=== PATIENT | female | born 1955 | race Caucasian/White ===

== ENCOUNTER 2016-11-09 16:53 | Inpatient (IN) | payer MEDICARE, OTHER ==
[2016-11-09 19:20] LABS: Hematocrit 35 % (35-47); Hemoglobin 11.9 g/dl (12.0-16.0); Mean Corpuscular HGB Conc 34 g/dl (31-36); Mean Corpuscular Hemoglobin 35 pg (27-31); Mean Corpuscular Volume 105 fL (80-97); Mean Platelet Volume 9 um3 (7.4-10.4); Red Blood Count 3.37 10^6/ul (4.0-5.4); Red Cell Distribution Width 15 % (10.5-15); White Blood Count 7.1 10^3/ul (3.5-10.8)
[2016-11-09 19:35] LABS: ALT 131 U/L (7-52); AST 146 U/L (13-39); Albumin 1.8 g/dL (3.2-5.2); Alkaline Phosphatase 172 U/L (34-104); Anion Gap 3 mmol/L (2-11); BUN/Creatinine Ratio 20.7 (8-20); Blood Urea Nitrogen 17 mg/dL (6-24); C Reactive Protein 15.53 mg/L (< 5.00); CO2 Carbon Dioxide 22 mmol/L (22-32); Chloride 108 mmol/L (101-111); Comments Flag Yes; EGFR African American 91.5 (>60); EGFR Non-African American 71.1 (>60); Globulin 6.3 g/dL (2-4); Glucose 166 mg/dL (70-100); Magnesium 1.7 mg/dL (1.9-2.7); Potassium 3.9 mmol/L (3.5-5.0); Sodium 133 mmol/L (133-145); Total Protein 8.1 g/dL (6.4-8.9)
[2016-11-09 20:12] LABS: Lipase 75 U/L (11.0-82.0)
[2016-11-09] MEDS ORDERED: Ondansetron INJ* 2 MG/ML VIAL IV PRN (21:28)
[2016-11-09] MEDS ORDERED: Phytonadione Oral Solution* 5 MG/25 ML UDC PO ONE (21:28)
[2016-11-09] MEDS ORDERED: Magnesium Sulfate 2 GM IV* 2 GM/50 ML BAG IVPB ONE (21:31)
[2016-11-09 22:04] LABS: Alcohol < 10 mg/dL (<10)
[2016-11-09] MEDS: Furosemide IV* 10 MG/ML VIAL (40 MG) IV SCH (23:21)
[2016-11-10 00:55] LABS: Urine Bilirubin Negative (Negative); Urine Glucose Negative (Negative); Urine Nitrite Negative (Negative)
--- NOTE | 2016-11-10 01:24 | HP ---
CC: Dr. Cordova * HISTORY AND PHYSICAL: DATE OF ADMISSION: 11/09/16 PRIMARY CARE PROVIDER: Dr. Cordova. ATTENDING PHYSICIAN WHILE IN THE HOSPITAL: Dr. Tripp Sheets * (report dictated by Poli Fan NP). CHIEF COMPLAINT: 1. Abdominal pain. 2. Weight gain. HISTORY OF PRESENT ILLNESS: Ms. Vidal is a 61-year-old female patient who has a history of long-standing alcoholism. She said she quit drinking alcohol about 6 weeks ago. Over the last 6 months, she has had progressive worsening abdominal swelling and pain. The pain has gotten unbearable last 2 to 3 days. She has been following closely in the GI setting, recently placed on Lasix and Aldactone per her and recently the Lasix was doubled; however, despite this, she continued to gain weight, she was continuing having abdominal discomfort, and continued to have the pain. Fortunately, she has not had any fevers or chills. She has not had any nausea or vomiting, though she says that the fluids got to the the point where her pain is unbearable at times and at times it affects particularly her exercise capacity. She says she is barely able to ambulate without becoming more short of breath and becoming tired. She denied having any chest pain. No cough. No fevers or chills. She says despite having the Lasix increased, she was unable to have any relief of this. She says she feels like she is with triplets and she says that the distention of the abdomen and the fluid had just been getting worse and worse, so she presented to the ER today with hopes for pain control and pain relief and work up of this ascites. Again, she had been following closely with the GI Clinic. She does have a history of chronic alcoholism, alcoholic cirrhosis of the liver, in addition, she also has a history of she says hepatitis B, but it looks like actually it is hepatitis C. The patient came in, was evaluated in the ER, and because of the ascites, the hospitalist service was asked to evaluate for admission. PAST MEDICAL HISTORY: Significant for: 1. Anxiety. 2. Chronic pain. 3. Alcoholic liver cirrhosis with ascites. 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 5. Hypertension. 6. PVD. 7. History of hepatitis C. PAST SURGICAL HISTORY: 1. She has had multiple surgeries to bilateral lower feet. 2. She has had an oversew of a peptic ulcer. MEDICATIONS: Unfortunately, she does not know her medications but only by name , does not know the dosages. She says she takes: 1. Metoprolol 1 tablet daily. 2. Potassium 60 mEq p.o. daily. 3. Lasix, she thinks she is on 40 mg daily. 4. Spironolactone 1 tablet p.o. daily. 5. Multivitamin 1 tablet daily. 6. Xanax 1 tablet at bedtime. 7. Zoloft 1 tablet daily. 8. Oxycodone 1 tablet p.o. b.i.d. Again, she does not know the milligrams, she does not have a list with her, we are going to touch base with her PCP tomorrow or possibly her pharmacy to get a more accurate list. ALLERGIES TO MEDICATIONS: Include AMBIEN and IBUPROFEN. FAMILY HISTORY: Her mother was an alcoholic. Her father's history is really unknown. SOCIAL HISTORY: She does not drink. She says the last drink she had was about 6 weeks ago according to the patient. She does not smoke. She denies recreational drug abuse. She has 2 children. Surrogate decision maker is her friend, Michaelle. REVIEW OF SYSTEMS: There is no documented fever. She does admit to having about a 50-pound weight gain in the last 6 months. She denies having any double vision. There is no ear discharge. She denied having any rhinorrhea. There is no sore throat. No thyroid enlargement. She denied having any chest pain. She denies having any orthopnea. There is no nocturnal dyspnea. There is abdominal pain from my HPI. She denies having any nausea or vomiting. No dysuria, no frequency. No loss of consciousness. No pruritus and no skin ulcerations. Review of 14 systems completed, all others were negative. PHYSICAL EXAMINATION GENERAL: At this time, Ms. Vidal is a 61-year-old female patient, she is chronically ill appearing. She is sitting in the ER stretcher. She does not appear to be in any acute distress. VITAL SIGNS: Reveal blood pressure 130/57, pulse 83, respirations 18, O2 sat was 97%, temperature 98.1. HEENT: Head: Atraumatic. Eyes: Sclerae appear to be icteric. EOMs are intact. Pupils react to light. NECK: Supple. Throat: Oral mucosa appears to be moist. No oropharyngeal erythema. LUNGS: Clear to auscultation bilaterally. No wheezes, rales, or rhonchi. HEART: Sounds S1, S2. Regular rate and rhythm. No murmurs, rubs, or gallops. ABDOMEN: It was distended, it was nontender on palpation. Bowel sounds were present. On percussion, she had dullness in the lower quadrants. She does appear to have a large amount of ascites. EXTREMITIES: She did have +3 pitting edema bilaterally to the pedal area. She had 5/5 strength. NEUROLOGICAL: The patient is awake, she is alert, she is oriented x3. No gross focal deficits. SKIN: Grossly intact. DIAGNOSTIC STUDIES/LAB DATA: Revealed a WBC of 7.1, RBC of 3.37, hemoglobin 11.9, hematocrit 35, platelet count of 65 which she has been running there. Her INR was 1.89. Today, the sodium was 133, potassium 3.9, chloride of 108, bicarb 22, BUN 17, creatinine 0.82, glucose of 166, lactate 2.3, calcium 8, mag 1.7. Total bili 4.7, AST 146, ALT of 131, alk phos 172. Ammonia was 62. The albumin was 1.8, lipase 75. I am adding on an alcohol level. She had an abdominal ultrasound done today, which showed the impressions of ascites. Findings: There is a moderate amount of ascites. Old medical records were reviewed. ASSESSMENT AND PLAN: Ms. Vidal is a 61-year-old female patient coming into the ER today with complaints of increasing abdominal distention and discomfort and associated increasing weakness and shortness of breath. Hospitalist service was asked to evaluate for admission due to ascites. She will be admitted under observation status for: 1. Ascites. Again, this appears to be a long chronic issue, which is now coming to the point where the patient will require a paracentesis. There was concern because of the increasing pain that there was possible spontaneous bacterial peritonitis; however, she has no CRP, there is no white count, no fever. I am inclined to hold on antibiotics and try to get a tap tomorrow for diagnostic and therapeutic reasoning and then assess the tap findings. If needed, we will start an antibiotic, but there is no fever, no white count, and again no elevation in CRP, I think we can hold off and monitor. Should she spike a white count obviously, we would put her on antibiotics. 2. Alcoholic cirrhosis with ascites. Again, she is following closely with the GI in the GI clinic. She has a followup with, according to the patient, Dr. Chavez this . At this point, I will continue the diuretics, try to get the paracentesis, and send off the tap for diagnostic purposes. She does not appear to be encephalopathic, so I do not think she needs lactulose for the ammonia that is for the time being, but I will continue the spironolactone, changing the Lasix to IV, and we will continue to follow her closely. Her MELD score is 22 and so she should again be followed closely with GI where she already has setup. 3. Chronic pain. Continue meds as prescribed. 4. Anxiety. We will try to get an accurate med list and see what the dose for Xanax is and also the dose of her Zoloft; she takes this for depression. 5. Hypertension. Again, I do not know the accurate dose of her Lopressor. We will try to get this tomorrow but I am going to continue the spironolactone and Lasix, which will help. 6. History of peptic ulcer disease. She is not on a PPI. She is following with GI. She can follow this. 7. History of hepatitis C. GI has been following her for this. Not an active issue currently. 8. DVT prophylaxis. Because of the elevated INR and the coagulopathy, which is being driven by the cirrhosis and liver dysfunction. I will give her vitamin K and place her on SCDs only and hold off on heparin. 9. Fluid, electrolytes, and nutrition. She can have a low-protein diet, then she is n.p.o. after midnight. 10. Code status. Full code. TIME SPENT: On the admission was 60 minutes; greater than half the time spent face- to-face with the patient obtaining the history and physical; other half the time spent going over the plan of the care with the patient and implementing plan of care. I did discuss the plan of care with my attending physician, Dr. Sheets; he is in agreement. POLI FAN, RIVAS [id number]/[facility] #: [id number] [place]
[2016-11-10 05:53] LABS: Comments Flag Yes; Hematocrit 32 % (35-47); Hemoglobin 10.8 g/dl (12.0-16.0); Mean Corpuscular HGB Conc 34 g/dl (31-36); Mean Corpuscular Hemoglobin 35 pg (27-31); Mean Corpuscular Volume 104 fL (80-97); Mean Platelet Volume 9 um3 (7.4-10.4); Red Cell Distribution Width 14 % (10.5-15); White Blood Count 6.7 10^3/ul (3.5-10.8)
[2016-11-10 07:45] LABS: Albumin 1.7 g/dL (3.2-5.2); BUN/Creatinine Ratio 21.3 (8-20); Calcium 7.9 mg/dL (8.6-10.3); EGFR African American 94.1 (>60); EGFR Non-African American 73.2 (>60); Globulin 5.8 g/dL (2-4); Potassium 3.4 mmol/L (3.5-5.0); Total Bilirubin 4.4 mg/dL (0.2-1.0); Total Protein 7.5 g/dL (6.4-8.9)
[2016-11-10] MEDS: Spironolactone TAB* 25 MG PO SCH (08:51)
[2016-11-10] MEDS: Furosemide IV* 10 MG/ML VIAL (40 MG) IV SCH (08:51)
[2016-11-10] MEDS: Lactulose* 15 ML UDC PO SCH ×3 (09:05→21:20)
[2016-11-10 14:49] LABS: Body Fluid WBC 55 /mcL
[2016-11-10 14:56] LABS: Body Fluid Appearance Clear; Body Fluid Total Cells Counted 100
[2016-11-10] MEDS: oxyCODONE TAB* 5 MG TAB PO PRN ×2 (15:15→23:30)
[2016-11-10] MEDS ORDERED: Potassium Chlor TAB* 20 MEQ TAB.ER PO ONE (15:21)
--- NOTE | 2016-11-10 15:26 | PN ---
Subjective Date of Service: 11/10/16 Interval History: pt was seen prior to paraccentesis. she never had paracentesis before. c/o increase in abd girth to the point of "having triplets" in the past 6 weeks. Objective Active Medications: Furosemide (Lasix Iv*) 40 mg IV DAILY [facility] Last Admin: 11/10/16 08:51 Dose: 40 mg Albumin Human 100 ml/ IV (Solution) 100 mls @ 0 mls/hr IV .(ENTER) [facility] PRN Reason: As Directed Lactulose (Lactulose*) 15 ml PO TID [facility] Last Admin: 11/10/16 14:50 Dose: 15 ml Ondansetron HCl (Zofran Inj*) 4 mg IV Q6H PRN PRN Reason: NAUSEA Oxycodone HCl (Roxycodone Tab*) 5 mg PO Q8H PRN PRN Reason: PAIN Last Admin: 11/10/16 15:15 Dose: 5 mg Spironolactone (Aldactone Tab*) 50 mg PO DAILY [facility] Last Admin: 11/10/16 08:51 Dose: 50 mg Vital Signs 11/09/16 11/09/16 11/10/16 21:30 22:50 03:17 Temperature 98.0 F 98.2 F Pulse Rate 82 75 85 Respiratory 18 20 Rate Blood Pressure 135/69 144/71 147/78 (mmHg) O2 Sat by Pulse 98 100 97 Oximetry 11/10/16 11/10/16 11/10/16 07:43 08:00 11:30 Temperature 97.5 F 98.1 F Pulse Rate 79 78 Respiratory 16 16 16 Rate Blood Pressure 138/61 121/64 (mmHg) O2 Sat by Pulse 99 100 Oximetry 11/10/16 11/10/16 12:46 15:15 Temperature 98.0 F Pulse Rate 96 Respiratory 23 14 Rate Blood Pressure 145/86 (mmHg) O2 Sat by Pulse 99 Oximetry Appearance: 61 yo f in nAD, aAOx3 Eyes: PERRLA, - - scela icteric Ears/Nose/Mouth/Throat: NL Teeth, Lips, Gums, Mucous Membranes Moist Neck: NL Appearance and Movements; NL JVP, Trachea Midline Respiratory: Symmetrical Chest Expansion and Respiratory Effort, Clear to Auscultation Cardiovascular: NL Sounds; No Murmurs; No JVD, RRR Abdominal: - - large , dense ascites, small reducible umbilical hernia, abd NT, BS+ Lymphatic: No Cervical Adenopathy Extremities: No Edema Skin: No Nodules or Sclerosis, - - +1 pitting pedal edema b/l Neurological: Alert and Oriented x 3, NL Muscle Strength and Tone Result Diagrams: 11/10/16 05:41 11/10/16 05:41 Microbiology and Other Data: Microbiology 11/10/16 13:37 Gram Stain - Final Body Fluid - Peritoneal Assess/Plan/Problems-Billing Assessment: 61 yo f with h/o Hep C, Alcoholism presents with large ascites - Patient Problems (1) Ascites due to alcoholic cirrhosis Comment: Pt just came back from paracentesis of 8000 ml total will infuse albumin Cont Aldactone and Lasix (2) Depression Comment: stable, cont sertraline (3) LFT elevation Comment: due to ETOH liver disease improved from 09/2016 (4) Hypokalemia Comment: replacing PO (5) Hypomagnesemia Comment: replacing PO (6) Thrombocytopenia Comment: due to liver cirrhosis (7) DVT prophylaxis Comment: no anticoagulants due to thrombocytopenia Status and Disposition: Inpatient for large volume paracentesis
[2016-11-10] MEDS ORDERED: Albumin Human 25%* 100 ML in PREMIX* 0 ML IV SCH (16:00)
[2016-11-10] MEDS: Magnesium Oxide TAB* 400 MG PO SCH (17:28)
--- NOTE | 2016-11-10 21:23 | ED ---
Uma Laura Edward, scribed for Mayo Dubon MD on 11/09/16 at 1825 . Abdominal Pain/Female - HPI Summary HPI Summary: 61 y/o female presents to ED c/o gradual onset, diffuse, constant ABD pain starting 6 weeks ago. The pain is aggravated by bending over. The pain is excruciating, rated The pt's ABD is very distended. Pt has been falling and d/t her abd distention she is unable to get up. Pt has fallen 3x in past 2d. Associated sx: unsteadiness, fatigue. PMHx cirrhosis of the liver, club feet. - History of Current Complaint Chief Complaint: EDAbdPain Stated Complaint: ABD PAIN AND BLOATED Hx Obtained From: Patient Onset/Duration: Gradual Onset, Lasting Weeks - 6 weeks, Still Present Timing: Constant Severity Currently: Severe Pain Intensity: 9 Pain Scale Used: 0-10 Numeric Location: Diffuse Aggravating Factor(s): Other: - Bending over Associated Signs and Symptoms: Positive: Other: - ABD distension, unsteadiness, fatigue Allergies/Adverse Reactions: Allergies Allergy/AdvReac Type Severity Reaction Status Date / Time Ibuprofen [From Advil] Allergy Intermediate gi bleed Verified 11/09/16 16:56 Zolpidem [From Ambien] Allergy Intermediate sleep Verified 11/09/16 16:56 walking PMH/Surg Hx/FS Hx/Imm Hx Previously Healthy: No Cardiovascular History: Reports: Hx Hypertension Psychiatric History: Reports: Hx Substance Abuse - Alcohol - Cancer History Hx Chemotherapy: No Hx Radiation Therapy: No - Surgical History Surgery Procedure, Year, and Place: Surgery for club feet as a child. Endoscopy (2008) Infectious Disease History: Reports: Hx Hepatitis - C Denies: Traveled Outside the [place] in Last 30 Days - Family History Known Family History: Positive: Cardiac Disease, Hypertension, Diabetes - Social History Occupation: Retired Lives: With Family Alcohol Use: Occasionally Hx Substance Use: No Substance Use Type: Reports: None Hx Tobacco Use: Yes Smoking Status (MU): Former Smoker Review of Systems Positive: Fatigue Eyes: Negative ENT: Negative Cardiovascular: Negative Respiratory: Negative Positive: Abdominal Pain, Other - ABD distension Genitourinary: Negative Musculoskeletal: Negative Skin: Negative Neurological: Other - Unsteadiness Psychological: Normal All Other Systems Reviewed And Are Negative: Yes Physical Exam Triage Information Reviewed: Yes Vital Signs On Initial Exam: Initial Vitals Temp Pulse Resp BP Pulse Ox 98.6 F 86 20 152/82 98 11/09/16 16:56 11/09/16 16:56 11/09/16 16:56 11/09/16 16:56 11/09/16 16:56 Vital Signs Reviewed: Yes Appearance: Positive: Well-Appearing, No Pain Distress Skin: Positive: Warm, Skin Color Reflects Adequate Perfusion, Dry Head/Face: Positive: Normal Head/Face Inspection Eyes: Positive: Normal ENT: Positive: Normal ENT inspection Neck: Positive: Supple, Nontender Respiratory/Lung Sounds: Positive: Clear to Auscultation, Breath Sounds Present Cardiovascular: Positive: RRR Abdomen Description: Positive: Nontender, Soft, Distended Bowel Sounds: Positive: Present Musculoskeletal: Positive: Edema Left - Peripheral edema, Edema Right - Peripheral edema Neurological: Positive: Normal Psychiatric: Positive: Normal, Affect/Mood Appropriate Diagnostics - Vital Signs Vital Signs Temp Pulse Resp BP Pulse Ox 11/09/16 16:56 98.6 F 86 20 152/82 98 - Laboratory Lab Results: Lab Results 11/09/16 11/09/16 11/09/16 Range/Units 19:00 19:00 19:00 WBC 7.1 (3.5-10.8) 10^3/ul RBC 3.37 L (4.0-5.4) 10^6/ul Hgb 11.9 L (12.0-16.0) g/dl Hct 35 (35-47) % MCV 105 H (80-97) fL MCH 35 H (27-31) pg MCHC 34 (31-36) g/dl RDW 15 (10.5-15) % Plt Count 65 L (150-450) 10^3/ul MPV 9 (7.4-10.4) um3 Neut % (Auto) 74.3 (38-83) % Lymph % (Auto) 13.1 L (25-47) % Sherman % (Auto) 10.5 H (1-9) % Eos % (Auto) 1.6 (0-6) % Baso % (Auto) 0.5 (0-2) % Absolute Neuts (auto) 5.3 (1.5-7.7) 10^3/ul Absolute Lymphs (auto) 0.9 L (1.0-4.8) 10^3/ul Absolute Monos (auto) 0.7 (0-0.8) 10^3/ul Absolute Eos (auto) 0.1 (0-0.6) 10^3/ul Absolute Basos (auto) 0 (0-0.2) 10^3/ul Absolute Nucleated RBC 0.01 10^3/ul Nucleated RBC % 0.2 INR (Anticoag Therapy) (0.89-1.11) Sodium 133 (133-145) mmol/L Potassium 3.9 (3.5-5.0) mmol/L Chloride 108 (101-111) mmol/L Carbon Dioxide 22 (22-32) mmol/L Anion Gap 3 (2-11) mmol/L BUN 17 (6-24) mg/dL Creatinine 0.82 (0.51-0.95) mg/dL Est GFR ( Amer) 91.5 (>60) Est GFR (Non-Af Amer) 71.1 (>60) BUN/Creatinine Ratio 20.7 H (8-20) Glucose 166 H (70-100) mg/dL Lactic Acid (0.5-2.0) mmol/L Calcium 8.0 L (8.6-10.3) mg/dL Magnesium 1.7 L (1.9-2.7) mg/dL Total Bilirubin 4.70 H (0.2-1.0) mg/dL AST 146 H (13-39) U/L ALT 131 H (7-52) U/L Alkaline Phosphatase 172 H (34-104) U/L Ammonia 62 H (16-53) mol/L C-Reactive Protein 15.53 H (< 5.00) mg/L Total Protein 8.1 (6.4-8.9) g/dL Albumin 1.8 L (3.2-5.2) g/dL Globulin 6.3 H (2-4) g/dL Albumin/Globulin Ratio 0.3 L (1-3) Lipase 75 (11.0-82.0) U/L Serum Alcohol < 10 (<10) mg/dL 11/09/16 11/09/16 Range/Units 19:00 19:00 WBC (3.5-10.8) 10^3/ul RBC (4.0-5.4) 10^6/ul Hgb (12.0-16.0) g/dl Hct (35-47) % MCV (80-97) fL MCH (27-31) pg MCHC (31-36) g/dl RDW (10.5-15) % Plt Count (150-450) 10^3/ul MPV (7.4-10.4) um3 Neut % (Auto) (38-83) % Lymph % (Auto) (25-47) % Sherman % (Auto) (1-9) % Eos % (Auto) (0-6) % Baso % (Auto) (0-2) % Absolute Neuts (auto) (1.5-7.7) 10^3/ul Absolute Lymphs (auto) (1.0-4.8) 10^3/ul Absolute Monos (auto) (0-0.8) 10^3/ul Absolute Eos (auto) (0-0.6) 10^3/ul Absolute Basos (auto) (0-0.2) 10^3/ul Absolute Nucleated RBC 10^3/ul Nucleated RBC % INR (Anticoag Therapy) 1.89 H (0.89-1.11) Sodium (133-145) mmol/L Potassium (3.5-5.0) mmol/L Chloride (101-111) mmol/L Carbon Dioxide (22-32) mmol/L Anion Gap (2-11) mmol/L BUN (6-24) mg/dL Creatinine (0.51-0.95) mg/dL Est GFR ( Amer) (>60) Est GFR (Non-Af Amer) (>60) BUN/Creatinine Ratio (8-20) Glucose (70-100) mg/dL Lactic Acid 2.3 H* (0.5-2.0) mmol/L Calcium (8.6-10.3) mg/dL Magnesium (1.9-2.7) mg/dL Total Bilirubin (0.2-1.0) mg/dL AST (13-39) U/L ALT (7-52) U/L Alkaline Phosphatase (34-104) U/L Ammonia (16-53) mol/L C-Reactive Protein (< 5.00) mg/L Total Protein (6.4-8.9) g/dL Albumin (3.2-5.2) g/dL Globulin (2-4) g/dL Albumin/Globulin Ratio (1-3) Lipase (11.0-82.0) U/L Serum Alcohol (<10) mg/dL Result Diagrams: 11/10/16 05:41 11/10/16 05:41 Lab Statement: Any lab studies that have been ordered have been reviewed, and results considered in the medical decision making process. Abdominal Pain Fem Course/Dx - Course Course Of Treatment: Ms. Vidal has accumulated ascites for the first time and is C/O pain. She will need a diagnostic and likely therapeutic tap. - Diagnoses Provider Diagnoses: Ascites due to alcoholic cirrhosis - Provider Notifications Discussed Care Of Patient With: Tripp Sheets Time Discussed With Above Provider: 20:45 Instructed by Provider To: Admit As Inpatient Discharge - Discharge Plan Condition: Stable Disposition: ADMITTED TO [facility] The documentation as recorded by the Uma sharma Edward accurately reflects the service I personally performed and the decisions made by Jagdish farfan Richard L, MD.
[2016-11-10] MEDS ORDERED: oxyCODONE TAB* 5 MG TAB PO SCH (21:28)
[2016-11-10] MEDS ORDERED: Heparin VIAL(*) 5000 UNITS/ML VIAL (FIVE THOUSAND) SUBCUT SCH (22:00)
--- NOTE | 2016-11-11 00:35 | OP ---
CC: Dr. Ari Chavez; Dr. Ashley Cordova * DATE OF OPERATION: 11/10/16 - ROOM #415 DATE OF : 57 SURGEON: Tian Jeffries MD SLASHER RUNNER: None. ANESTHESIOLOGIST: None. PRE-OP DIAGNOSIS: Ascites. POST-OP DIAGNOSIS: Ascites. OPERATIVE PROCEDURE: Ultrasound guided Paracentesis. DESCRIPTION OF PROCEDURE: The patient was in the procedure room on the stretcher. Ultrasound was carried out of the abdomen and large amount of ascites fluid was identified. There were about 5 cm of fluid between the abdominal wall and the organs on the right side of the abdomen, so the right side was chosen and the area was prepped with antiseptic and draped in a sterile fashion. Local infiltrative anesthesia was administered, 1% plain lidocaine. Skinny vest finisher needle identified fluid as expected and the paracentesis catheter was then placed. Chantel thin fluid was forthcoming. Specimens were sent to the lab. Suction bottles were used to acquire the ascites fluid and a total of about 8500 mL of ascites was evacuated. She felt much better at the completion of the procedure. The catheter was removed and bandage was placed. She will be sent back up to the medical floor following the procedure. [id number]/[facility] #: [id number] [facility]
[2016-11-11 06:07] LABS: Hematocrit 34 % (35-47); Hemoglobin 11.4 g/dl (12.0-16.0); Mean Corpuscular HGB Conc 34 g/dl (31-36); Mean Corpuscular Hemoglobin 35 pg (27-31); Mean Corpuscular Volume 105 fL (80-97); Mean Platelet Volume 9 um3 (7.4-10.4); Red Blood Count 3.24 10^6/ul (4.0-5.4); Red Cell Distribution Width 14 % (10.5-15); White Blood Count 7.5 10^3/ul (3.5-10.8)
[2016-11-11 06:12] LABS: Comments Flag Yes
[2016-11-11 06:21] LABS: Albumin 1.8 g/dL (3.2-5.2); BUN/Creatinine Ratio 23.7 (8-20); Calcium 8.1 mg/dL (8.6-10.3); EGFR African American 99.8 (>60); EGFR Non-African American 77.6 (>60); Globulin 5.6 g/dL (2-4); Potassium 3.7 mmol/L (3.5-5.0); Total Protein 7.4 g/dL (6.4-8.9)
[2016-11-11] MEDS: Furosemide IV* 10 MG/ML VIAL (40 MG) IV SCH (07:58)
[2016-11-11] MEDS: oxyCODONE TAB* 5 MG TAB PO PRN (07:59)
[2016-11-11] MEDS: Spironolactone TAB* 25 MG PO SCH (08:00)
[2016-11-11] MEDS: Lactulose* 15 ML UDC PO SCH ×2 (08:01→13:40)
[2016-11-11] MEDS: Magnesium Oxide TAB* 400 MG PO SCH (08:01)
[2016-11-11] MEDS ORDERED: Sertraline* 100 MG TAB PO SCH (09:00)
[2016-11-11] MEDS ORDERED: Potassium Chlor TAB* 20 MEQ TAB.ER PO SCH (09:00)
[2016-11-11 11:57] VITALS: BP 131/68
[2016-11-11 14:12] LABS: Total Protein, BF 0.9 g/dL
--- NOTE | 2016-11-12 02:44 | DS ---
CC: Dr. Chavez; Dr. Cordova * DISCHARGE SUMMARY: DATE OF ADMISSION: 11/09/16 DATE OF DISCHARGE: 11/11/16 PRIMARY CARE PROVIDER: Dr. Cordova. HEALTHCARE ADMINISTRATION INTERN: Dr. Chavez. DISCHARGE DIAGNOSIS: Ascites with alcoholic liver cirrhosis, status post 8 L fluid obtained via paracentesis by Dr. Jeffries on 11/10/16. SECONDARY DIAGNOSES: 1. History of alcoholism. The patient stopped drinking 6 weeks ago. 2. History of hepatitis C. 3. History of anxiety. 4. History of chronic pain. 5. Hypertension. MEDICATIONS AT DISCHARGE: Include: 1. Lactulose 15 mL p.o. daily. 2. Metoprolol tartrate 25 mg daily. 3. Multivitamin 1 tablet daily. 4. Potassium chloride 20 mEq daily. 5. Sertraline 100 mg daily. 6. Trospium 20 mg daily. 7. Oxycodone 5 mg daily. 8. Furosemide 20 mg b.i.d. 9. Lidocaine ointment 5% p.r.n. 10. Mag-Ox 400 mg daily. 11. Aldactone 50 mg daily. PROCEDURES PERFORMED DURING THE HOSPITAL STAY: Included a paracentesis performed by Dr. Jeffries on 11/10/16. LABORATORY DATA AND STUDIES DURING THE HOSPITAL STAY: Included: On 11/11/16, sodium of 131, potassium 3.7, chloride 105, carbon dioxide 23, BUN 18, creatinine 0.76. Total bilirubin of 5.0, AST of 147, ALT of 126, alkaline phosphatase of 144. CBC included a white blood cell count of 7.5, hemoglobin is 11.4, hematocrit of 34, MCV of 105, and platelets of 67. Peritoneal fluid analysis showed clear fluid with white blood cells, 2445 red blood cells, 36% of neutrophils, 62 of lymphocytes, and 2 of monocytes. Other cells included benign mesothelial cells and macrophages. Ascites fluids: Total protein and albumin is still pending at the time of this dictation. At discharge, the patient is recommended to follow up with her primary care provider in 4 to 7 days and follow up with Dr. Chavez tomorrow as previously scheduled. The patient's ammonia level was noted to be 62 on 11/09/16. PHYSICAL EXAMINATION: At the time of discharge, blood pressure of 121/68, heart rate of 88 and regular, respiratory rate 16, oxygen saturation 99% on room air, temperature 97.9. General: The patient is a very pleasant 61-year- old female, who is in no acute distress. Alert, awake, and oriented x3. HEENT : Head atraumatic, normocephalic. Eyes: Pupils equal and reactive to light and accommodation. Oropharynx clear. Mucosa moist. Neck: Supple. No JVD. No bruits bilaterally. Cardiovascular: Regular rate and rhythm. No murmur. Respiratory: Clear to auscultation bilaterally. Abdomen: Soft, nontender. Mild ascites noted. No hepatomegaly palpated. Extremities: There is +1 pitting pedal edema bilaterally. Pulses +2 bilaterally. There is no clubbing or cyanosis. On evaluation of the skin, the patient has jaundice noted. She also has scleral icterus on eye evaluation. Psychiatric Evaluation: Very pleasant and cooperative with evaluation, oriented x3 with no evidence of anxiety or depression. At discharge, the patient was advised to ambulate with a rolling walker, which was provided to her. She was also set up with visiting nurse association. The patient was recommended strongly not to have any alcohol in the future. Please note that this is a short summary of the patient's hospitalization. Please refer to further medical records for details. TIME SPENT: Approximately 35 minutes was spent on the patient's discharge. [id number]/[facility] #: [id number] [facility]
== END 2016-11-11 14:10 | disposition home or self-care (01) | DRG 434 ==
LOC: ED 16:53 → MED 21:25 → OBSVTOIN 11-10 15:16
PROVIDERS: ADMIT Internal Medicine; ATTEND Internal Medicine
PROC: 0W9G3ZZ Drainage of Peritoneal Cavity, Percutaneous Approach (ICD-10-PCS; principal; 2016-11-10 13:00)
DX: K70.31 Alcoholic cirrhosis of liver with ascites (principal); D69.6 Thrombocytopenia, unspecified; I10 Essential (primary) hypertension; B19.20 Unspecified viral hepatitis C without hepatic coma; F41.9 Anxiety disorder, unspecified; G89.29 Other chronic pain; F10.20 Alcohol dependence, uncomplicated; Y90.9 Presence of alcohol in blood, level not specified; I73.9 Peripheral vascular disease, unspecified; F32.9 Major depressive disorder, single episode, unspecified; E83.42 Hypomagnesemia; E87.6 Hypokalemia; Z88.8 Allergy status to other drugs, medicaments and biological substances; Z91.81 History of falling; Z82.49 Family history of ischemic heart disease and other diseases of the circulatory system; Z83.3 Family history of diabetes mellitus; Z87.891 Personal history of nicotine dependence; Z81.1 Family history of alcohol abuse and dependence
CPT/HCPCS: 36415; 49082; 76705; 80053; 80320; 81003; 82042; 82140; 83605; 83690; 83735; 84157; 85025; 85610; 86140; 87040; 87205; 88112; 89051; A9270-GY; G0480; J1940; J3475; P9047

== ENCOUNTER → 2016-11-13 11:58 | Emergency (ER) | payer MEDICARE, OTHER ==
[~2016-11-13 11:58] MED LIST: ceFAZolin 1 GM ADVAN(*) 1 GM in NS 0.9% 50 ML* 50 ML IVPB ONE; oxyCODONE TAB* 5 MG TAB PO ONE
[2016-11-13 13:24] LABS: Hematocrit 35 % (35-47); Hemoglobin 11.7 g/dl (12.0-16.0); Mean Corpuscular HGB Conc 34 g/dl (31-36); Mean Corpuscular Hemoglobin 35 pg (27-31); Mean Platelet Volume 9 um3 (7.4-10.4); Red Blood Count 3.33 10^6/ul (4.0-5.4); Red Cell Distribution Width 14 % (10.5-15); White Blood Count 8.3 10^3/ul (3.5-10.8)
[2016-11-13 13:33] LABS: Comments Flag Yes; Mean Corpuscular Volume 105 fL (80-97)
[2016-11-13 13:36] LABS: Albumin 1.9 g/dL (3.2-5.2); BUN/Creatinine Ratio 22.7 (8-20); C Reactive Protein 26.6 mg/L (< 5.00); Calcium 8.2 mg/dL (8.6-10.3); EGFR African American 84.3 (>60); EGFR Non-African American 65.5 (>60); Potassium 4.1 mmol/L (3.5-5.0); Total Bilirubin 7.3 mg/dL (0.2-1.0); Total Protein 7.9 g/dL (6.4-8.9)
[2016-11-13 14:51] VITALS: BP 116/78
--- NOTE | 2016-11-13 20:18 | ED ---
Stevie Laura Nikita, scribed for Mayo Dubon MD on 11/13/16 at 1235 . Skin Complaint - HPI Summary HPI Summary: Pt is a 61 yo female presenting to the ED c/o pain on the surface of the right abd area since 0600 this morning. She rates the pain as a 9/10. Associated Sx include fever, per her PCP who withdrew fluid from the affected area this morning. She is allergic to Ambien and Advil. - History of Current Complaint Chief Complaint: EDAbdPain Time Seen by Provider: 11/13/16 12:16 Stated Complaint: INFECTION, CIRRHOSIS OF LIVER Hx Obtained From: Patient Onset/Duration: Started Hours Ago - 0600 this morning., Still Present Timing: Constant Onset Severity: Severe - 9/10 Current Severity: Severe - 9/10 Pain Intensity: 9 Pain Scale Used: 0-10 Numeric Skin Location: Abdomen - Right abdominal area. Character: Painful - 9/10 Aggravating Symptom(s): Nothing Alleviating Symptom(s): Nothing Associated Signs & Symptoms: Fever - Documented by PCP. - Additional Pertinent History Primary Care Physician: [id number] - Allergy/Home Medications Allergies/Adverse Reactions: Allergies Allergy/AdvReac Type Severity Reaction Status Date / Time Ibuprofen [From Advil] Allergy Intermediate gi bleed Verified 11/13/16 12:10 Zolpidem [From Ambien] Allergy Intermediate sleep Verified 11/13/16 12:10 walking Home Medications: Home Medications Lactulose (Encephalopathy) [Lactulose] 15 ml PO DAILY 11/13/16 [History Confirmed 11/13/16] Lidocaine 5% OINT* [Xylocaine 5% Oint*] 1 applic TOPICAL DAILY PRN 11/13/16 [ History Confirmed 11/13/16] Magnesium Oxide TAB* [MagOx 400 TAB*] 400 mg PO DAILY 11/13/16 [History Confirmed 11/13/16] Metoprolol Tartrate TAB* [Lopressor TAB*] 25 mg PO DAILY 11/13/16 [History Confirmed 11/13/16] Multivitamins/Minerals TAB* [Theragran/minerals TAB*] 1 tab PO DAILY 11/13/16 [ History Confirmed 11/13/16] Potassium Chlor TAB* [Klor Con ER TAB*] 20 meq PO DAILY 11/13/16 [History Confirmed 11/13/16] Sertraline* [Zoloft*] 100 mg PO DAILY 11/13/16 [History Confirmed 11/13/16] Spironolactone (NF) [Spironolactone 50 MG (NF)] 50 mg PO DAILY 11/13/16 [ History Confirmed 11/13/16] Trospium (NF) [Sanctura (NF)] 20 mg PO DAILY 11/13/16 [History Confirmed ] oxyCODONE TAB* [Roxycodone TAB 5 mg*] 5 mg PO BID PRN 11/13/16 [History Confirmed 11/13/16] PMH/Surg Hx/FS Hx/Imm Hx Previously Healthy: No Cardiovascular History: Reports: Hx Hypertension GI History: Reports: Hx Cirrhosis Comment Only: Other GI Disorders - peptic ulcer Musculoskeletal History: Reports: Other Musculoskeletal History - born club footed Sensory History: Reports: Hx Contacts or Glasses, Hx Hearing Aid Opthamlomology History: Reports: Hx Contacts or Glasses Psychiatric History: Reports: Hx Anxiety, Hx Substance Abuse - Alcohol - Cancer History Hx Chemotherapy: No Hx Radiation Therapy: No - Surgical History Surgery Procedure, Year, and Place: Surgery for club feet as a child. Endoscopy (2008) Infectious Disease History: Reports: Hx Hepatitis - C, History Other Infectious Disease - hep C Denies: Traveled Outside the [place] in Last 30 Days - Family History Known Family History: Positive: Cardiac Disease, Hypertension, Diabetes - Social History Alcohol Use: Occasionally Hx Substance Use: No Substance Use Type: Reports: None Hx Tobacco Use: Yes Smoking Status (MU): Former Smoker Review of Systems Positive: Fever - Documented by PCP this morning. Positive: Other - Pain on right abdominal area, 9/10 All Other Systems Reviewed And Are Negative: Yes Physical Exam Triage Information Reviewed: Yes Vital Signs On Initial Exam: Initial Vitals Temp Pulse Resp BP Pulse Ox 98.5 F 81 20 129/59 98 11/13/16 12:10 11/13/16 12:10 11/13/16 12:10 11/13/16 12:10 11/13/16 12:10 Vital Signs Reviewed: Yes Appearance: Positive: Well-Appearing, Pain Distress - 9/10 in right abdominal area. Skin: Positive: Tender - Erythematous area is tender to touch., Erythema @ - Erythematous area medial and inferior to the puncture site that's tender to touch Head/Face: Positive: Normal Head/Face Inspection Eyes: Positive: Normal ENT: Positive: Normal ENT inspection Neck: Positive: Supple, Nontender Respiratory/Lung Sounds: Positive: Clear to Auscultation, Breath Sounds Present Cardiovascular: Positive: RRR Abdomen Description: Positive: Nontender, Other: - No rebound. Bowel Sounds: Positive: Present Musculoskeletal: Positive: Normal Neurological: Positive: Normal Psychiatric: Positive: Normal, Affect/Mood Appropriate Diagnostics - Vital Signs Vital Signs Temp Pulse Resp BP Pulse Ox 11/13/16 12:10 98.5 F 81 20 129/59 98 - Laboratory Lab Results: Lab Results 11/13/16 11/13/16 Range/Units 13:00 13:00 WBC 8.3 (3.5-10.8) 10^3/ul RBC 3.33 L (4.0-5.4) 10^6/ul Hgb 11.7 L (12.0-16.0) g/dl Hct 35 (35-47) % MCV 105 H (80-97) fL MCH 35 H (27-31) pg MCHC 34 (31-36) g/dl RDW 14 (10.5-15) % Plt Count 65 L (150-450) 10^3/ul MPV 9 (7.4-10.4) um3 Neut % (Auto) 83.9 H (38-83) % Lymph % (Auto) 6.6 L (25-47) % [place] % (Auto) 7.4 (1-9) % Eos % (Auto) 0.7 (0-6) % Baso % (Auto) 1.4 (0-2) % Absolute Neuts (auto) 6.9 (1.5-7.7) 10^3/ul Absolute Lymphs (auto) 0.5 L (1.0-4.8) 10^3/ul Absolute Monos (auto) 0.6 (0-0.8) 10^3/ul Absolute Eos (auto) 0.1 (0-0.6) 10^3/ul Absolute Basos (auto) 0.1 (0-0.2) 10^3/ul Absolute Nucleated RBC 0.01 10^3/ul Nucleated RBC % 0.1 Sodium 127 L (133-145) mmol/L Potassium 4.1 (3.5-5.0) mmol/L Chloride 102 (101-111) mmol/L Carbon Dioxide 23 (22-32) mmol/L Anion Gap 2 (2-11) mmol/L BUN 20 (6-24) mg/dL Creatinine 0.88 (0.51-0.95) mg/dL Est GFR ( Amer) 84.3 (>60) Est GFR (Non-Af Amer) 65.5 (>60) BUN/Creatinine Ratio 22.7 H (8-20) Glucose 168 H (70-100) mg/dL Calcium 8.2 L (8.6-10.3) mg/dL Total Bilirubin 7.30 H D (0.2-1.0) mg/dL AST 221 H (13-39) U/L ALT 413 H (7-52) U/L Alkaline Phosphatase 155 H (34-104) U/L C-Reactive Protein 26.60 H (< 5.00) mg/L Total Protein 7.9 (6.4-8.9) g/dL Albumin 1.9 L (3.2-5.2) g/dL Globulin 6.0 H (2-4) g/dL Albumin/Globulin Ratio 0.3 L (1-3) Result Diagrams: 11/13/16 13:00 11/13/16 13:00 Lab Statement: Any lab studies that have been ordered have been reviewed, and results considered in the medical decision making process. Re-Evaluation - Re-Evaluation First Eval Re-Evaluation Time: 13:50 Comment: Discussed discharge plan. Second Eval Re-Evaluation Time: 14:01 Comment: Discussed Course/Dx - Course Course Of Treatment: Ms. Vidal was sent over from a routine F/U appt. with her PMD because of a fever after a recent paracentesis. She was noted to have an erythematous and tender area inferiorly and medially to the wound. She had no other abd tenderness or rebound and Shahid's sign was negative. Her transaminases were up from the other day and this will need to be followed closely. She got her first dose of antibiotics for skin infection here and a script was sent. - Diagnoses Provider Diagnoses: Cellulitis - Physician Notifications Discussed Care Of Patient With: Cecy Ryan Time Discussed With Above Provider: 13:58 Instructed by Provider To: Other - Dr. Ryan thought the increase in transaminase was likely due to diuresis. Discussed care of pt with Dr. Orona at 1423 who [address] to have Dr[address] Anderson follow up with the pt. Discharge - Discharge Plan Condition: Stable Disposition: HOME Prescriptions: Cephalexin CAP* [Keflex CAP*] 500 mg PO QID #40 cap Patient Education Materials: Cellulitis (ED) Referrals: Ashley Cordova MD [Primary Care Provider] - 11/16/16 Tai Anderson MD [Medical Doctor] - The documentation as recorded by the Stevie sharma Nikita accurately reflects the service I personally performed and the decisions made by , Mayo Dubon MD.
== END | disposition home or self-care (01) ==
LOC: ED 11:58
DX: L03.90 Cellulitis, unspecified (principal); R50.9 Fever, unspecified
CPT/HCPCS: 36415; 80053; 85025; 86140; 87040; 99283; J0690

== ENCOUNTER 2016-11-24 15:12 | Inpatient (IN) | payer MEDICARE ==
[2016-11-24] MEDS ORDERED: Thiamine IV* 100 MG, Folic Acid IV* 1 MG, Multiple Vitamin IV ADULT* 10 ML, Magnesium S... IV ONE ×5 (15:30)
[2016-11-24] MEDS ORDERED: NS 0.9% 1000 ML* 1,000 ML IV ONE (15:32)
[2016-11-24 15:45] LABS: Hematocrit 36 % (35-47); Hemoglobin 11.7 g/dl (12.0-16.0); Mean Corpuscular HGB Conc 33 g/dl (31-36); Mean Corpuscular Hemoglobin 35 pg (27-31); Mean Platelet Volume 8 um3 (7.4-10.4); Red Blood Count 3.33 10^6/ul (4.0-5.4); Red Cell Distribution Width 15 % (10.5-15); White Blood Count 11.9 10^3/ul (3.5-10.8)
[2016-11-24 15:48] LABS: Comments Flag Yes
[2016-11-24 15:49] LABS: Add Diff/Slide Review? Slide Review Added; Mean Corpuscular Volume 107 fL (80-97)
[2016-11-24 16:04] LABS: B Type Natriuretic Peptide 178 pg/mL
--- NOTE | 2016-11-24 16:05 | RAD ---
INDICATION: Altered mental status, pleural effusion. COMPARISON: There are no prior studies available for comparison. TECHNIQUE: A portable view of the chest was obtained. FINDINGS: Cardiac and mediastinal contours appear to be within normal limits. There is elevation of the right hemidiaphragm. The lungs are grossly clear. No pleural effusion is seen. IMPRESSION: 1. NO EVIDENCE FOR ACUTE FINDING. 2. ELEVATED RIGHT HEMIDIAPHRAGM.
[2016-11-24 16:06] LABS: ALT 260 U/L (7-52); Albumin 1.7 g/dL (3.2-5.2); Alkaline Phosphatase 179 U/L (34-104); Amylase 28 U/L (29-103); Blood Urea Nitrogen 53 mg/dL (6-24); C Reactive Protein 25.26 mg/L (< 5.00); Calcium 8.8 mg/dL (8.6-10.3); Chloride 106 mmol/L (101-111); Creatine Kinase 392 U/L (10-223); EGFR African American 22.3 (>60); EGFR Non-African American 17.3 (>60); Globulin 6.4 g/dL (2-4); Glucose 102 mg/dL (70-100); Lipase 53 U/L (11.0-82.0); Sodium 125 mmol/L (133-145); Total Protein 8.1 g/dL (6.4-8.9)
[2016-11-24 16:11] LABS: Anion Gap 5 mmol/L (2-11); CO2 Carbon Dioxide 14 mmol/L (22-32); Troponin I 0.05 ng/mL (<0.04)
--- NOTE | 2016-11-24 16:23 | RAD ---
Indication: Fall, hepatic encephalopathy. CT of the brain was performed without IV contrast. Ventricular structures are midline. No midline shift is noted. Central and cortical atrophy is noted. There is no evidence of intracranial mass or hemorrhage. No other high or low density lesions are identified. Mastoid air cells and paranasal sinuses are grossly unremarkable. IMPRESSION: NO INTRACRANIAL MASS OR HEMORRHAGE IS NOTED.
[2016-11-24] MEDS ORDERED: FOLIC ACID IV ONE (16:25)
[2016-11-24] MEDS ORDERED: THIAMINE IV ONE (16:25)
[2016-11-24] MEDS ORDERED: [UNRECOGNIZED DRUG - OTHER] IV ONE (16:25)
[2016-11-24] MEDS ORDERED: MULTIPLE VITAMIN IV ONE (16:25)
[2016-11-24] MEDS ORDERED: Magnesium Sulfate 2 GM IV* 2 GM/50 ML BAG IV ONE (17:00)
[2016-11-24 17:05] LABS: Magnesium 2.5 mg/dL (1.9-2.7)
[2016-11-24] MEDS ORDERED: Dextrose 50% Syringe 50 ML* 25 GM/50 ML SYRINGE IV PUSH ONE (17:09)
[2016-11-24] MEDS ORDERED: Insulin REGULAR(*) 1 UNITS UNIT IV PUSH ONE (17:09)
[2016-11-24] MEDS ORDERED: Sodium Bicarbonate 8.4% IV* 50 ML VIAL IV ONE (17:10)
[2016-11-24] MEDS ORDERED: Ondansetron INJ* 2 MG/ML VIAL IV PRN (17:32)
[2016-11-24] MEDS ORDERED: Sodium Bicarbonate 8.4%* 50 ML SYRINGE ONE (17:33)
[2016-11-24] MEDS ORDERED: Phytonadione Oral Solution* 5 MG/25 ML UDC PO ONE (17:42)
[2016-11-24] MEDS ORDERED: Lidocaine 1% INJ* 10 MG/ML 30 ML SDV ONE (18:03)
--- NOTE | 2016-11-24 18:44 | PN ---
Progress Note - Progress Note Date of Service: 11/24/16 Note: Procedure Note: Right Paracentesis - diagnostic to rule out SBP Time out performed Labs and vitals reviewed prior to procedure Site marked with patient's assistance Ultrasound guidance used to identify location Site prepped with chlorhexedine then anesthetized with 3 cc 2% lidocaine An 18 gauge needle was then inserted into the peritoneal space and 60 cc of clear yellow fluid was removed for culture and cell count Patient tolerated the procedure There were no complications during the procedure
--- NOTE | 2016-11-24 19:26 | ED ---
Ishan Laura Alfonso, scribed for Trell Bentley MD on 11/24/16 at 1549 . Complex/Multi-Sys Presentation - HPI Summary HPI Summary: This patient is a 61 year old F [place] [facility] by children s/p a fall 16 hours ago. She was on the floor for 16 hours. Son states she fell out of a chair and it was not a hard fall but I dont really know what happened she was refusing to let me help her up. The patient rates the pain 0/10 in severity. Symptoms alleviated by nothing. EMS reports low blood sugar. Patient reports generalized weakness, and abdominal bloating. All medical records reviewed. - History Of Current Complaint Chief Complaint: EDGeneral Time Seen by Provider: 11/24/16 15:16 Hx Obtained From: Patient, EMS Onset/Duration: Sudden Onset, Lasting Hours - 16, Still Present Timing: Constant Severity Currently: Moderate Severity Initially: Moderate Alleviating Factor(s): Nothing Associated Signs And Symptoms: Positive: Other - EMS reports low blood sugar. Patient reports generalized weakness, and abdominal bloating. - Allergies/Home Medications Allergies/Adverse Reactions: Allergies Allergy/AdvReac Type Severity Reaction Status Date / Time Ibuprofen [From Advil] Allergy Intermediate gi bleed Verified 11/13/16 12:10 Zolpidem [From Ambien] Allergy Intermediate sleep Verified 11/13/16 12:10 walking PMH/Surg Hx/FS Hx/Imm Hx Cardiovascular History: Reports: Hx Hypertension GI History: Reports: Hx Cirrhosis Comment Only: Other GI Disorders - peptic ulcer Musculoskeletal History: Reports: Other Musculoskeletal History - born club footed Sensory History: Reports: Hx Contacts or Glasses, Hx Hearing Aid Opthamlomology History: Reports: Hx Contacts or Glasses Psychiatric History: Reports: Hx Anxiety, Hx Substance Abuse - Alcohol - Cancer History Hx Chemotherapy: No Hx Radiation Therapy: No - Surgical History Surgery Procedure, Year, and Place: Surgery for club feet as a child. Endoscopy (2008) Infectious Disease History: No Infectious Disease History: Reports: Hx Hepatitis - C, History Other Infectious Disease - hep C Denies: Traveled Outside the [place] in Last 30 Days - Family History Known Family History: Positive: Cardiac Disease, Hypertension, Diabetes - Social History Alcohol Use: Occasionally Hx Substance Use: No Substance Use Type: Reports: None Hx Tobacco Use: Yes Smoking Status (MU): Former Smoker Review of Systems Positive: Other - low blood sugar Positive: Other - abdominal bloating Positive: Other - fall Neurological: Other - generalized weakness All Other Systems Reviewed And Are Negative: Yes Physical Exam - Summary Physical Exam Summary: The patient is well-nourished in no acute distress and in no acute pain. No evidence of head trauma. No mayer signs. No raccoon signs. The skin is jaundice and pale. Skin turgor decreased. Modeled at lower extremities. 3 small healed incisions at left rib cage. HEENT: The head is normocephalic and atraumatic. The pupils are equal and reactive. Scleral icterus. Nares are patent and without drainage. Mouth reveals dry mucous membranes and the throat is without erythema and exudate. The external ears are intact. The ear canals are patent and without drainage. The tympanic membranes are intact. No rhinorrhea Neck is supple with full range of motion and non-tender. There are no carotid bruits. There is no neck vein distension. Respiratory: Chest is non-tender. Lungs are clear to auscultation and breath sounds are symmetrical and equal. Cardiovascular: Heart is tachycardia. There is no murmur or rub auscultated. Pulses are symmetrical and equal. Abdomen: Abdominal ascites. Caput medusa. Umbilical hernia which is easily reduced. Musculoskeletal: There is no back pain noted. Extremities are non-tender with full range of motion. The capillary refill is prolonged. There is pitting edema at bilateral lower extremities. Neurological: Patient is alert and oriented to person, place and time. The patient has symmetrical motor strength in all four extremities. Cranial nerves are grossly intact. Deep tendon reflexes are symmetrical and equal in all four extremities. Psychiatric: The patient has an appropriate affect and does not exhibit any anxiety or depression. Triage Information Reviewed: Yes Vital Signs On Initial Exam: Initial Vitals BP 120/46 11/24/16 15:23 Vital Signs Reviewed: Yes - Martin Coma Scale Best Eye Response: 4 - Spontaneous Best Motor Response: 6 - Obeys Commands Best Verbal Response: 5 - Oriented Coma Scale Total: 15 Diagnostics - Vital Signs Vital Signs Temp Pulse Resp BP Pulse Ox 11/24/16 15:30 69 19 117/43 100 11/24/16 15:29 97.8 F 71 22 117/43 100 11/24/16 15:24 71 21 97 08/29/17 15:23 120/46 - Laboratory Lab Results: Lab Results 11/24/16 11/24/16 11/24/16 Range/Units 15:30 15:30 15:30 WBC (3.5-10.8) 10^3/ul RBC (4.0-5.4) 10^6/ul Hgb (12.0-16.0) g/dl Hct (35-47) % MCV (80-97) fL MCH (27-31) pg MCHC (31-36) g/dl RDW (10.5-15) % Plt Count (150-450) 10^3/ul MPV (7.4-10.4) um3 Neut % (Auto) (38-83) % Lymph % (Auto) (25-47) % [place] % (Auto) (1-9) % Eos % (Auto) (0-6) % Baso % (Auto) (0-2) % Absolute Neuts (auto) (1.5-7.7) 10^3/ul Absolute Lymphs (auto) (1.0-4.8) 10^3/ul Absolute Monos (auto) (0-0.8) 10^3/ul Absolute Eos (auto) (0-0.6) 10^3/ul Absolute Basos (auto) (0-0.2) 10^3/ul Absolute Nucleated RBC 10^3/ul Nucleated RBC % INR (Anticoag Therapy) 2.38 H (0.89-1.11) APTT 57.1 H (26.0-36.3) seconds Sodium 125 L (133-145) mmol/L Potassium TNP Chloride 106 (101-111) mmol/L Carbon Dioxide 14 L* (22-32) mmol/L Anion Gap 5 (2-11) mmol/L BUN 53 H (6-24) mg/dL Creatinine 2.79 H (0.51-0.95) mg/dL Est GFR ( Amer) 22.3 (>60) Est GFR (Non-Af Amer) 17.3 (>60) BUN/Creatinine Ratio 19.0 (8-20) Glucose 102 H (70-100) mg/dL Lactic Acid (0.5-2.0) mmol/L Calcium 8.8 (8.6-10.3) mg/dL Magnesium TNP Total Bilirubin 7.20 H (0.2-1.0) mg/dL AST TNP ALT 260 H (7-52) U/L Alkaline Phosphatase 179 H (34-104) U/L Ammonia TNP Lactate Dehydrogenase 521 H (140-271) U/L Total Creatine Kinase 392 H (10-223) U/L Troponin I 0.05 H* (<0.04) ng/mL C-Reactive Protein 25.26 H (< 5.00) mg/L B-Natriuretic Peptide 178 H ( - 100) pg/mL Total Protein 8.1 (6.4-8.9) g/dL Albumin 1.7 L (3.2-5.2) g/dL Globulin 6.4 H (2-4) g/dL Albumin/Globulin Ratio 0.3 L (1-3) Amylase 28 L (29-103) U/L Lipase 53 (11.0-82.0) U/L 11/24/16 11/24/16 11/24/16 Range/Units 15:30 15:30 16:25 WBC 11.9 H (3.5-10.8) 10^3/ul RBC 3.33 L (4.0-5.4) 10^6/ul Hgb 11.7 L (12.0-16.0) g/dl Hct 36 (35-47) % MCV 107 H (80-97) fL MCH 35 H (27-31) pg MCHC 33 (31-36) g/dl RDW 15 (10.5-15) % Plt Count 96 L (150-450) 10^3/ul MPV 8 (7.4-10.4) um3 Neut % (Auto) 91.5 H (38-83) % Lymph % (Auto) 4.8 L (25-47) % [place] % (Auto) 3.4 (1-9) % Eos % (Auto) 0.1 (0-6) % Baso % (Auto) 0.2 (0-2) % Absolute Neuts (auto) 10.9 H (1.5-7.7) 10^3/ul Absolute Lymphs (auto) 0.6 L (1.0-4.8) 10^3/ul Absolute Monos (auto) 0.4 (0-0.8) 10^3/ul Absolute Eos (auto) 0 (0-0.6) 10^3/ul Absolute Basos (auto) 0 (0-0.2) 10^3/ul Absolute Nucleated RBC 0.05 10^3/ul Nucleated RBC % 0.4 INR (Anticoag Therapy) (0.89-1.11) APTT (26.0-36.3) seconds Sodium (133-145) mmol/L Potassium 6.7 H* Chloride (101-111) mmol/L Carbon Dioxide (22-32) mmol/L Anion Gap (2-11) mmol/L BUN (6-24) mg/dL Creatinine (0.51-0.95) mg/dL Est GFR ( Amer) (>60) Est GFR (Non-Af Amer) (>60) BUN/Creatinine Ratio (8-20) Glucose (70-100) mg/dL Lactic Acid 2.9 H* (0.5-2.0) mmol/L Calcium (8.6-10.3) mg/dL Magnesium 2.5 Total Bilirubin (0.2-1.0) mg/dL AST 296 H ALT (7-52) U/L Alkaline Phosphatase (34-104) U/L Ammonia Lactate Dehydrogenase (140-271) U/L Total Creatine Kinase (10-223) U/L Troponin I (<0.04) ng/mL C-Reactive Protein (< 5.00) mg/L B-Natriuretic Peptide ( - 100) pg/mL Total Protein (6.4-8.9) g/dL Albumin (3.2-5.2) g/dL Globulin (2-4) g/dL Albumin/Globulin Ratio (1-3) Amylase (29-103) U/L Lipase (11.0-82.0) U/L 11/24/16 Range/Units 16:25 WBC (3.5-10.8) 10^3/ul RBC (4.0-5.4) 10^6/ul Hgb (12.0-16.0) g/dl Hct (35-47) % MCV (80-97) fL MCH (27-31) pg MCHC (31-36) g/dl RDW (10.5-15) % Plt Count (150-450) 10^3/ul MPV (7.4-10.4) um3 Neut % (Auto) (38-83) % Lymph % (Auto) (25-47) % [place] % (Auto) (1-9) % Eos % (Auto) (0-6) % Baso % (Auto) (0-2) % Absolute Neuts (auto) (1.5-7.7) 10^3/ul Absolute Lymphs (auto) (1.0-4.8) 10^3/ul Absolute Monos (auto) (0-0.8) 10^3/ul Absolute Eos (auto) (0-0.6) 10^3/ul Absolute Basos (auto) (0-0.2) 10^3/ul Absolute Nucleated RBC 10^3/ul Nucleated RBC % INR (Anticoag Therapy) (0.89-1.11) APTT (26.0-36.3) seconds Sodium (133-145) mmol/L Potassium Chloride (101-111) mmol/L Carbon Dioxide (22-32) mmol/L Anion Gap (2-11) mmol/L BUN (6-24) mg/dL Creatinine (0.51-0.95) mg/dL Est GFR ( Amer) (>60) Est GFR (Non-Af Amer) (>60) BUN/Creatinine Ratio (8-20) Glucose (70-100) mg/dL Lactic Acid (0.5-2.0) mmol/L Calcium (8.6-10.3) mg/dL Magnesium Total Bilirubin (0.2-1.0) mg/dL AST ALT (7-52) U/L Alkaline Phosphatase (34-104) U/L Ammonia 83 H Lactate Dehydrogenase (140-271) U/L Total Creatine Kinase (10-223) U/L Troponin I (<0.04) ng/mL C-Reactive Protein (< 5.00) mg/L B-Natriuretic Peptide ( - 100) pg/mL Total Protein (6.4-8.9) g/dL Albumin (3.2-5.2) g/dL Globulin (2-4) g/dL Albumin/Globulin Ratio (1-3) Amylase (29-103) U/L Lipase (11.0-82.0) U/L Result Diagrams: 11/24/16 15:30 11/24/16 16:25 Lab Statement: Any lab studies that have been ordered have been reviewed, and results considered in the medical decision making process. - Radiology CXR Radiology Interpretation Completed By: Radiologist - 1. NO EVIDENCE FOR ACUTE FINDING. 2. ELEVATED RIGHT HEMIDIAPHRAGM. ED physician has reviewed this radiology report and agrees. - CT Brain CT Interpretation Completed By: Radiologist - NO INTRACRANIAL MASS OR HEMORRHAGE IS NOTED. ED physician has reviewed this radiology report and agrees. - EKG 1552 Cardiac Rate: NL - BPM 69 EKG Rhythm: Sinus Rhythm EKG Interpretation: normal axis, and intraventricular conduction delay. Complex Multi-Symp Course/Dx Assessment/Plan: This patient is a 61 year old F BIBA to [facility] accompanied by children s/p a fall 16 hours ago. She was on the floor for 16 hours. Son states she fell out of a chair and it was not a hard fall but I dont really know what happened she was refusing to let me help her up. The patient rates the pain 0/10 in severity. Symptoms alleviated by nothing. EMS reports low blood sugar. Patient reports generalized weakness, and abdominal bloating. All medical records reviewed. 30 minutes of CRITICAL CARE TIME An EKG reveals NSR, normal axis, and intraventricular conduction delay. CXR reveals 1. NO EVIDENCE FOR ACUTE FINDING. 2. ELEVATED RIGHT HEMIDIAPHRAGM. ED physician has reviewed this radiology report and agrees. CT Brain reveals NO INTRACRANIAL MASS OR HEMORRHAGE IS NOTED. ED physician has reviewed this radiology report and agrees. Consulted Dr. Reina (hospitalist) who agrees to admit. The patient is agreeable with this plan. - Diagnoses Provider Diagnoses: Acute renal failure, Hepatic failure, Dehydration, Hyperkalemia, Hepatic encephalopathy - Physician Notifications Discussed Care Of Patient With: Young Reina Time Discussed With Above Provider: 16:47 Instructed by Provider To: Other - Consulted Dr. Reina (hospitalist) who agrees to admit. - Critical Care Time Critical Care Time: 30-74 min - 30 minutes CCT. Discharge - Discharge Plan Condition: Stable Disposition: ADMITTED TO [facility] The documentation as recorded by the Ishan sharma Alfonso accurately reflects the service I personally performed and the decisions made by , Trell Bentley MD.
[2016-11-24] MEDS: NS 0.9% 1000 ML* 1,000 ML IV SCH (19:30)
[2016-11-24] MEDS: ALBUMIN HUMAN 25% IV ONE ×2 (19:39→19:59)
[2016-11-24] MEDS ORDERED: LORazepam TAB(*) 1 MG PO SCH (20:00)
[2016-11-24 20:16] LABS: Body Fluid Appearance Clear; Body Fluid Total Cells Counted 100
[2016-11-24 20:21] LABS: Body Fluid WBC 73 /mcL
[2016-11-24 20:43] LABS: BUN/Creatinine Ratio 19.4 (8-20); Calcium 8.3 mg/dL (8.6-10.3); EGFR African American 21.8 (>60); Potassium 5.6 mmol/L (3.5-5.0)
--- NOTE | 2016-11-24 21:48 | HP ---
CC: Ashley Cordova MD; Dr. Cahvez * ADMISSION HISTORY AND PHYSICAL: DATE OF ADMISSION: 11/24/16 PRIMARY CARE PROVIDER: Ashley Cordova MD. PRIMARY WEATHERSTRIP MACHINE OPERATOR: Dr. Chavez. ADMITTING PROVIDER: DAISY Zaman. SUPERVISING PHYSICIAN: Malachi Rand MD * (DICTATED BY DAISY ZAMAN) CHIEF COMPLAINT: Altered mental status and fall. HISTORY OF PRESENT ILLNESS: This is a 61-year-old female with a known history of liver cirrhosis secondary to hepatitis C and alcoholism as well as no history of chronic pain, hypertension and anxiety. The patient was admitted to our facility just about 2 weeks ago with complaints of abdominal pain, increasing abdominal girth and weight gain. She had been seen for similar complaints by her cops and her diuretics had been increased without improvement and she was subsequently admitted, underwent a large volume paracentesis and subsequently discharged to home. The patient's family states that she has really been unable to care for herself at home. She has been sporadically taking her medications, but they found pills all over the floor with various pill bottles. The patient is unable to state which medication she has taken and when. She sounds like she followed up with her cops since her last admission and there was concern for a possible skin infection at the site of her paracentesis and was prescribed an antibiotic, which was filled, but again it is questionable whether she took this or not. The patient reports that she has diarrhea 1 to 2 times daily with a poor appetite, but no complaints of nausea or vomiting. She does complain of abdominal pain that has been worse since discharge from the emergency department. She is unsure if she has run any fevers at home. Denies any new rashes. She reports that she has been increasingly weak and has sustained multiple falls over the last few days. She was found on the ground by her son today who called EMS for transport to the emergency department. She was found to be hypoglycemic with a blood glucose of 38 mg/dL at the time EMS arrived and she received an amp of dextrose. The patient denies any chest pain, cough, shortness of breath or palpitations. PAST MEDICAL HISTORY: 1. Liver cirrhosis secondary to hepatitis C and alcoholism. 2. Anxiety. 3. Chronic pain. 4. Hypertension. PAST SURGICAL HISTORY: 1. Multiple unspecified surgeries of both of her feet. 2. She required an oversew of a peptic ulcer that was subsequently bleeding. HOME MEDICATIONS: 1. Lasix 20 mg p.o. twice daily. 2. Lactulose 15 mL p.o. daily. 3. Lidocaine 5% ointment apply topically as needed. 4. Magnesium oxide 400 mg p.o. daily. 5. Metoprolol tartrate 25 mg p.o. daily. 6. Multivitamin 1 tablet p.o. daily. 7. Potassium chloride 20 mEq p.o. daily. 8. Sertraline 100 mg p.o. daily. 9. Spironolactone 50 mg p.o. daily. 10. Sanctura 20 mg p.o. daily. 11. Oxycodone 5 mg p.o. twice daily as needed for pain. SOCIAL HISTORY: The patient currently lives alone. She has a history of alcoholism and had reportedly quit drinking about 8 weeks ago, but family reports that she has fallen off the wagon and they found multiple alcohol bottles at home. She has no significant smoking history and is not currently employed. REVIEW OF SYSTEMS: As noted above in HPI. All other systems reviewed and considered negative. PHYSICAL EXAMINATION GENERAL: This is a middle aged female that appears slightly older than her stated age who is lying in a hospital stretcher in no acute distress, but obviously confused, accompanied by family as well as a close friend. VITAL SIGNS: Temperature 97.8 degrees Fahrenheit, pulse 71 beats per minute, respiratory rate 22, oxygen saturation 100% on room air, and blood pressure 117/ 43 mmHg. HEENT: Head is normocephalic, atraumatic with slightly dry mucous membranes. RESPIRATORY: Lungs are clear to auscultation without wheezes, crackles, or rhonchi. CARDIOVASCULAR: Heart has a regular rate and rhythm without murmurs, rubs, or gallops. ABDOMEN: Distended, firm and tender to palpation diffusely. EXTREMITIES: The patient has bilateral lower extremity edema, which is pitting. SKIN: There are a few areas of ecchymosis, but no concerning rashes or lesions noted. LABORATORY DATA: CBC shows white blood count of 11,900, hemoglobin of 11.7 g/ dL and a platelet count of 96,000. INR of 2.38. PTT of 57. Comprehensive metabolic panel shows sodium of 125, potassium 6.7, serum bicarb 14, BUN 53, creatinine 2.79, lactic acid of 2.9. Magnesium 2.5. Total bilirubin of 7.2. AST 296, ALT 260, alk phos 179. Ammonia 83. Total CK of 392. Troponin 0.05. CRP of 25. BNP of 178. Albumin of 1.7 and a total protein of 8.1. Amylase is normal at 28 and lipase is normal at 53. IMAGING: CT of the brain shows no acute process. Chest x-ray shows no acute process. EKG shows a sinus rhythm without ischemic changes. ASSESSMENT AND PLAN: This is a 61-year-old female with liver cirrhosis secondary to hepatitis C and alcoholism who continues to consume alcohol who presents with increased confusion, abdominal pain and evidence of significant ascites accompanied by leukocytosis, acute liver dysfunction and acute renal failure. The patient is subsequently being admitted to the hospital with concern for spontaneous bacterial peritonitis. 1. Possible spontaneous bacterial peritonitis - based on the patient's leukocytosis, worsening liver failure and acute kidney injury, the patient's presentation most likely represents spontaneous bacterial peritonitis. Bedside paracentesis was performed by Dr. Rand. This was not a large volume paracentesis but done for diagnostic purposes with pending cell counts, Gram stain and fluid culture. The patient will be empirically treated for spontaneous bacterial pneumonitis with ceftriaxone and albumin given at a dose of 1.5 g/kg today and will be repeated at 1 g/kg on day 3. On-call cops will be notified of the patient's admission and request consultation likely tomorrow. 2. Acute liver failure - history of chronic liver failure secondary to cirrhosis with acute exacerbation likely secondary to spontaneous bacterial pneumonitis - we will treat supportively as outlined above. The patient has MELD score of 33 at this time with noted worsening INR and albumin. 3. Acute renal failure - assume this is secondary to spontaneous bacterial pneumonitis. The patient is currently receiving albumin. We will insert a East catheter for appropriate output monitoring. 4. Hyperkalemia - potassium of 6.7, this is likely due to her acute renal failure. She is also prescribed potassium supplementation and she may have mismanaged her potassium supplements that contributed to this as well. The patient received treatment in the emergency department with IV fluids, sodium bicarb, insulin with dextrose and calcium gluconate. No changes on telemetry at this time. The patient has a repeat potassium pending from 2 hours from her first. 5. Metabolic acidosis - the patient has a noted lactic acidosis likely due to her acute liver dysfunction. The additional acid may be due to her acute renal failure at this time. No other clinical signs of sepsis. She does have a repeat basic metabolic panel pending as well. I anticipate improvement with volume expansion and subsequent treatment from her liver and renal failure. 6. Hyponatremia likely secondary to liver failure and will be monitored carefully at this time. 7. Elevated troponin - this is likely due to demand ischemia secondary to her acute illness. The patient has no complaints of chest pain, no ischemic changes on EKG. We will plan to maintain continuous telemetry monitoring and obtain serial troponins. 8. Alcoholism - the patient has continued to drink alcohol intermittently. No signs of acute withdrawal at this time, but will initiate WAM protocol at least for the next 72 hours. 9. Chronic pain - hold on her oxycodone due to her acute liver dysfunction. 10. Hypertension - I will hold her beta-chelsey in the setting of suspected spontaneous bacterial pneumonitis and the patient is moderately hypotensive in the emergency department. 11. Healthcare proxy is listed as her friend, Theresa Ham, who is present in the emergency department. 12. Code status. The patient and her proxy verbally endorsed DNR. No signed MOLST on file at this time, but this will be updated during her hospital stay. 13. DVT prophylaxis - we will initiate SCDs. We will hold on chemical prophylaxis at this time due to her acute hepatic dysfunction and propensity for bleeding at this time. DISPOSITION: The patient is being admitted to inpatient status with anticipated length of stay to be greater than 2 midnights. DAISY ZAMAN [id number]/[facility] #: [id number] [place]
[2016-11-25 05:03] LABS: Hematocrit 29 % (35-47); Hemoglobin 9.5 g/dl (12.0-16.0); Mean Corpuscular HGB Conc 33 g/dl (31-36); Mean Corpuscular Hemoglobin 35 pg (27-31); Mean Corpuscular Volume 106 fL (80-97); Mean Platelet Volume 8 um3 (7.4-10.4); Red Cell Distribution Width 15 % (10.5-15); White Blood Count 11.8 10^3/ul (3.5-10.8)
[2016-11-25 05:05] LABS: Add Diff/Slide Review? Slide Review Added; Comments Flag Yes
[2016-11-25 05:17] LABS: Albumin 2.9 g/dL (3.2-5.2); BUN/Creatinine Ratio 18.2 (8-20); EGFR African American 19.9 (>60); EGFR Non-African American 15.4 (>60); Globulin 4.8 g/dL (2-4); Potassium 5.7 mmol/L (3.5-5.0); Total Bilirubin 6.4 mg/dL (0.2-1.0); Total Protein 7.7 g/dL (6.4-8.9)
[2016-11-25] MEDS ORDERED: Insulin REGULAR(*) 1 UNITS UNIT IV PUSH ONE ×2 (08:35→14:57)
[2016-11-25] MEDS ORDERED: Dextrose 50% Syringe 50 ML* 25 GM/50 ML SYRINGE IV PUSH PRN ×2 (08:35→14:57)
[2016-11-25] MEDS: Multivitamins/Minerals TAB PO SCH (08:58)
[2016-11-25] MEDS: Magnesium Oxide TAB* 400 MG PO SCH (08:59)
[2016-11-25] MEDS: Sertraline* 100 MG TAB PO SCH (08:59)
[2016-11-25] MEDS: Folic Acid TAB* 1 MG PO SCH (08:59)
[2016-11-25] MEDS: Thiamine TAB* 100 MG TAB PO SCH (09:00)
[2016-11-25] MEDS ORDERED: Lactulose* 15 ML UDC PO SCH (09:00)
[2016-11-25 09:46] LABS: Urine Bacteria Absent (Absent); Urine Bilirubin Negative (Negative); Urine Glucose Negative (Negative); Urine Nitrite Negative (Negative)
--- NOTE | 2016-11-25 10:03 | HP ---
H&P (Free Text) History and Physical: GI CONSULTATION Reason for Consultation: Suspected SBP in patient with cirrhosis HPI: Ms. Vidal is a 61 year old female with past medical history significant for decompensated cirrhosis secondary to alcohol and hepatitis C. Patient has a history of recurrent ascites and was admitted to hospital approximately 2 weeks ago for paracentesis. She placed on diuretics at that time and returns because of recurrent falls per patient. She states she has not been able to walk easily as she feels fatigued and unsteady. She lives at home and was noted to have medications on the floor. History is limited given patient's mental state. She denies any recent bleeding or melena. States she believes she has been taking her medications. Denies fevers or chills. Admits to confusion and poor sleep. She reports that her abdomen is more distended and states she needs to have "another surgery to take fluid out". GI consulted for evaluation. Patient admits to alcohol consumption approximately 6 weeks ago. Per notes, she was found down by family and brought to hospital via EMS to ED for urgent evaluation. Blood glucose low to 30s. ROS: 10 point review of systems reviewed is negative unless mentioned in HPI Past Medical History Decompensated Cirrhosis Hepatitis C Alcoholism Ascites Anxiety Chronic Pain Hypertension MEDICATIONS: Lasix 20mg daily Lactulose 15mL daily Magnesium Oxide Metoprolol 25mg daily MVI daily KCl 20mg dialy Sertraline 100mg daily Spironolactone 50mg daily Sanctura 20mg daily Family History: Non-contributory Social History: History of heavy drinking, last drink 6 weeks ago per report VITALs Temp Pulse Resp BP Pulse Ox 98.9 F 86 20 102/48 99 11/25/16 03:30 11/25/16 03:30 11/25/16 03:30 11/25/16 03:30 11/25/16 03:30 GEN: Appears chronically ill but conversant HEENT: icteric scleara CHEST +multiple spider angiomata, clear to auscultation bilaterally CV: Regular rate, rhythm , +murmur heard in right sternal border ABD: distended, not tense; caput medusae, nontender to light palpation but some tenderness in lower quadrants, +splenomegaly and fluid wave, normoactive bowel sounds SKIN: Jaundiced EXT: 1+ edema bilaterally Neuro: +asterixis Labs: Laboratory Last Values WBC 11.8 10^3/ul (3.5-10.8) H 11/25/16 04:47 RBC 2.70 10^6/ul (4.0-5.4) L 11/25/16 04:47 Hgb 9.5 g/dl (12.0-16.0) L 11/25/16 04:47 Hct 29 % (35-47) L 11/25/16 04:47 MCV 106 fL (80-97) H 11/25/16 04:47 MCH 35 pg (27-31) H 11/25/16 04:47 MCHC 33 g/dl (31-36) 11/25/16 04:47 RDW 15 % (10.5-15) 11/25/16 04:47 Plt Count 65 10^3/ul (150-450) L 11/25/16 04:47 MPV 8 um3 (7.4-10.4) 11/25/16 04:47 Neut % (Auto) 83.5 % (38-83) H 11/25/16 04:47 Lymph % (Auto) 8.2 % (25-47) L 11/25/16 04:47 Armstrong % (Auto) 6.8 % (1-9) 11/25/16 04:47 Eos % (Auto) 0.5 % (0-6) 11/25/16 04:47 Baso % (Auto) 1.0 % (0-2) 11/25/16 04:47 Absolute Neuts (auto) 9.9 10^3/ul (1.5-7.7) H 11/25/16 04:47 Absolute Lymphs (auto) 1.0 10^3/ul (1.0-4.8) 11/25/16 04:47 Absolute Monos (auto) 0.8 10^3/ul (0-0.8) 11/25/16 04:47 Absolute Eos (auto) 0.1 10^3/ul (0-0.6) 11/25/16 04:47 Absolute Basos (auto) 0.1 10^3/ul (0-0.2) 11/25/16 04:47 Absolute Nucleated RBC 0.03 10^3/ul 11/25/16 04:47 Nucleated RBC % 0.2 11/25/16 04:47 INR (Anticoag Therapy) 2.49 (0.89-1.11) H 11/25/16 04:47 APTT 57.1 seconds (26.0-36.3) H 11/24/16 15:30 Sodium 130 mmol/L (133-145) L 11/25/16 04:47 Potassium 5.7 mmol/L (3.5-5.0) H 11/25/16 04:47 Chloride 109 mmol/L (101-111) 11/25/16 04:47 Carbon Dioxide 15 mmol/L (22-32) L 11/25/16 04:47 Anion Gap 6 mmol/L (2-11) 11/25/16 04:47 BUN 56 mg/dL (6-24) H 11/25/16 04:47 Creatinine 3.08 mg/dL (0.51-0.95) H 11/25/16 04:47 Est GFR ( Amer) 19.9 (>60) 11/25/16 04:47 Est GFR (Non-Af Amer) 15.4 (>60) 11/25/16 04:47 BUN/Creatinine Ratio 18.2 (8-20) 11/25/16 04:47 Glucose 113 mg/dL (70-100) H 11/25/16 04:47 Lactic Acid 3.6 mmol/L (0.5-2.0) H* 11/24/16 20:04 Calcium 9.0 mg/dL (8.6-10.3) 11/25/16 04:47 Magnesium 2.5 mg/dL (1.9-2.7) 11/24/16 16:25 Total Bilirubin 6.40 mg/dL (0.2-1.0) H 11/25/16 04:47 AST 417 U/L (13-39) H 11/25/16 04:47 ALT 312 U/L (7-52) H 11/25/16 04:47 Alkaline Phosphatase 140 U/L (34-104) H 11/25/16 04:47 Ammonia 83 mol/L (16-53) H 11/24/16 16:25 Lactate Dehydrogenase 521 U/L (140-271) H 11/24/16 15:30 Total Creatine Kinase 392 U/L (10-223) H 11/24/16 15:30 Troponin I 0.04 ng/mL (<0.04) H* 11/25/16 00:47 C-Reactive Protein 25.26 mg/L (< 5.00) H 11/24/16 15:30 B-Natriuretic Peptide 178 pg/mL (-100) H 11/24/16 15:30 Total Protein 7.7 g/dL (6.4-8.9) 11/25/16 04:47 Albumin 2.9 g/dL (3.2-5.2) L 11/25/16 04:47 Globulin 4.8 g/dL (2-4) H 11/25/16 04:47 Albumin/Globulin Ratio 0.6 (1-3) L 11/25/16 04:47 Amylase 28 U/L (29-103) L 11/24/16 15:30 Lipase 53 U/L (11.0-82.0) 11/24/16 15:30 Urine Color Chantel 11/25/16 09:20 Urine Appearance Cloudy 11/25/16 09:20 Urine pH 5.0 (5-9) 11/25/16 09:20 Ur Specific [place] 1.014 (1.010-1.030) 11/25/16 09:20 Urine Protein 3+(>=500 mg/dl) (Negative) H 11/25/16 09:20 Urine Ketones Negative (Negative) 11/25/16 09:20 Urine Blood 3+ (Negative) H 11/25/16 09:20 Urine Nitrate Negative (Negative) 11/25/16 09:20 Urine Bilirubin Negative (Negative) 11/25/16 09:20 Urine Urobilinogen Negative (Negative) 11/25/16 09:20 Ur Leukocyte Esterase 1+ (Negative) H 11/25/16 09:20 Urine WBC (Auto) 3+(>20/hpf) (Absent) H 11/25/16 09:20 Urine RBC (Auto) 3+(>10/hpf) (Absent) H 11/25/16 09:20 Ur Squamous Epith Cells Present (Absent) H 11/25/16 09:20 Ur Transition Epith Cell Present (Absent) H 11/25/16 09:20 Urine Bacteria Absent (Absent) 11/25/16 09:20 Hyaline Casts Present (Absent) H 11/25/16 09:20 Urine Glucose Negative (Negative) 11/25/16 09:20 Fluid Source Peritonial fluid 11/24/16 18:30 Fluid Volume 11 mL 11/24/16 18:30 Fluid Color Yellow 11/24/16 18:30 Fluid Appearance Clear 11/24/16 18:30 Fluid WBC 73 /mcL (0-090732) 11/24/16 18:30 Fluid RBC 778 /mcL 11/24/16 18:30 Fluid Tot Cell Count 100 11/24/16 18:30 Fluid Neutrophils 19 % 11/24/16 18:30 Fluid Lymphocytes 9 % 11/24/16 18:30 Fluid Monocytes 72 % 11/24/16 18:30 Impression/Plan: 61 year old female with HCV/ETOH cirrhosis complicated by recurrent ascites and now worsening liver enzymes as well abdominal distension. 1. Hepatic Encephalopathy: Patient has evidence of HE on examination today and would benefit from uptitration of lactulose to 15mL q8hrs. She will need to have 2-3 BMs/day. 2. SBP: Patient underwent a diagnostic paracentesis and has no evidence of SBP based on labs thus far. No indication for antibiotics for SBP. 3. Elevated WBC: Suspected this is reactive to underlying alcohol hepatitis. 4. Elevated Liver enzymes: As above, likely related to acute hepatitis and has very high MELD-Na (36) and high risk for mortality in next 90 days. Palliative care should be involved with overall care of this patient. Would not initiate corticosteroids at this time given patients significant renal dysfunction. 5. Ascites: Patient should undergo large volume paracentesis, would like to < 5Liters given her renal dysfunction. Hold diuretics in setting of worsening renal dysfunction. 6. Acute kidney Injury: Please give 50g of 25% Albumin today and tomorrow.Send urine culture and electrolytes.
--- NOTE | 2016-11-25 11:00 | PN ---
Subjective Date of Service: 11/25/16 Interval History: This is a 61 yo female with a h/o cirrhosis related to alcoholism and hep C who was admitted with worsening liver function and TAYLOR. Initial suspicion of SBP, but peritoneal fluid is not suggestive of this. This am, patient offers no new acute complaints. She is still having some abdominal pain and reports the East catheter is uncomfortable. She tolerated breakfast. No n/v. Objective Active Medications: Dextrose (D50w Syringe 50 Ml*) 25 gm IV PUSH ONCE PRN PRN Reason: FS < 60 Last Admin: 11/25/16 09:00 Dose: 25 gm Folic Acid (Folvite Tab*) 1 mg PO DAILY [facility] Last Admin: 11/25/16 08:59 Dose: 1 mg Sodium Chloride (Ns 0.9% 1000 Ml*) 1,000 mls @ 75 mls/hr IV PER RATE [facility] Last Admin: 11/24/16 19:30 Dose: 75 mls/hr Albumin Human 200 ml/ IV (Solution) 200 mls @ 0 mls/hr IV DAILY [facility] PRN Reason: As Directed Stop: 11/27/16 10:59 Ceftriaxone Sodium 1 gm/ (Sodium Chloride) 100 mls @ 200 mls/hr IVPB Q24H [facility] Lactulose (Lactulose*) 15 ml PO TID [facility] Lorazepam (Ativan Tab(*)) 0 - 6 mg PO .PER [facility] PROTOCOL [facility] PRN Reason: Protocol Magnesium Oxide (Magox 400 Tab*) 400 mg PO DAILY [facility] Last Admin: 11/25/16 08:59 Dose: 400 mg Multivitamins/Minerals (Theragran/Minerals Tab*) 1 tab PO DAILY [facility] Last Admin: 11/25/16 08:58 Dose: 1 tab Ondansetron HCl (Zofran Inj*) 4 mg IV Q4H PRN PRN Reason: NAUSEA/VOMITING Sertraline HCl (Zoloft*) 100 mg PO DAILY [facility] Last Admin: 11/25/16 08:59 Dose: 100 mg Thiamine HCl (Vitamin B-1 Tab*) 100 mg PO DAILY [facility] Last Admin: 11/25/16 09:00 Dose: 100 mg Vital Signs: Temp Pulse Resp BP Pulse Ox 98.5 F 96 16 102/53 97 11/25/16 07:32 11/25/16 07:32 11/25/16 08:00 11/25/16 07:32 11/25/16 07:32 Oxygen Devices in Use Now: None Appearance: Middle aged female who appears older than stated age and jaundiced Respiratory: Symmetrical Chest Expansion and Respiratory Effort, Clear to Auscultation Cardiovascular: RRR, - - murmur, 3/6 Abdominal: - - distended, firm, evidence of gross ascites, mild diffuse TTP Extremities: - - 2+ LE edema Neurological: - - alert, oriented to place and person Result Diagrams: 11/25/16 04:47 11/25/16 04:47 Additional Lab and Data: Laboratory Tests 11/24/16 11/25/16 15:30 04:47 INR (Anticoag Therapy) 2.38 H 2.49 H Microbiology and Other Data: Microbiology 11/24/16 18:30 Gram Stain - Final Body Fluid - Peritoneal Assess/Plan/Problems-Billing Assessment: This is a 61 yo female with liver cirrhosis associated with alcoholism and hep C as well as chronic pain, HTN, and anxiety who presented with confusion and abdominal pain. Admitted with concern for SBP, but now appears to be acute alcoholic hepatitis with hepatorenal syndrome. - Patient Problems (1) Acute on chronic alcoholic liver disease Comment: Inital concern for SBP, but this is not supported by peritoneal fluid analysis High MELD score (33 on admission, 34 today) with associated hepatorenal syndrome Appreciate GI consultation No evidence of acute alcohol withdrawal She does appears mildly encephalopathic, will increase lactulose Request for high volume paracentesis and give albumin per GI recommendation to support renal fxn GI advised against corticosteroids at this time GI prophylaxis with PPI (2) Hepatorenal syndrome Comment: This is a new finding and poor prognostic indicator Giving albumin per GI recommendation Diuretics held Pending large volume paracentesis (3) Hyperkalemia Comment: Likely due to acute renal dysfunction Cont to treat medically No changes on telemetry Additional insulin with dextrose given this am with cont IVF and lactulose Repeat BMP at noon (4) Abnormal finding on urinalysis Comment: Possible UTI Pending cx Cover empirically with ceftriaxone (5) Leukocytosis Comment: Perhaps due to hepatitis v UTI Pending urine cx (6) Metabolic acidosis Comment: Likely due to renal dysfunction No evidence of sepsis (7) Demand ischemia Comment: Troponin stable No c/o CP No ischemic changes on EKG (8) Heart murmur Comment: No prior mention of valvular heart disease Ordered TTE to evaluate further (9) Thrombocytopenia Comment: Secondary to liver cirrhosis (10) DVT prophylaxis Comment: SCDs only (11) DNR (do not resuscitate) Comment: Per health care proxy MOLST needs to be completed Status and Disposition: Inpatient. Anticipate extended LOS
[2016-11-25] MEDS: NS 0.9% 1000 ML* 1,000 ML IV SCH (11:40)
[2016-11-25] MEDS: Albumin Human 25%* 200 ML in PREMIX* 0 ML IV SCH (12:37)
[2016-11-25] MEDS: Lactulose* 15 ML UDC PO SCH ×2 (14:39→20:24)
[2016-11-25 14:47] LABS: BUN/Creatinine Ratio 17.9 (8-20); Calcium 9.1 mg/dL (8.6-10.3); EGFR African American 19.1 (>60); EGFR Non-African American 14.9 (>60); Potassium 5.5 mmol/L (3.5-5.0)
--- NOTE | 2016-11-25 15:18 | ECHO ---
Patient: SELMA REESE [facility] Rec#: [id number] : 1955 Date: 11/25/2016 Age: 61y Height: 167.64 cm / 66.0 in Weight: 82.1 kg / 180.9 lbs Sex: F BSA: 1.92 Room#: [facility] Admit Date#: 11/24/2016 Type: Inpatient Referring: Akash Davies Reading: Sunitha Lewis MD Seamer: Selma Staples,EVERARDOCS,RDMS CC: YE FRANKLIN Transthoracic Echocardiogram Indication: Murmur BP: 102/53 HR: 88 Rhythm: NSR Findings History: Hepatic encephalopathy, Cirrhosis, heavy ETOH use, ascites, Hep C, HTN, former smoker Technical Comments: The study quality is good. Completed 1245 Left Ventricle: The left ventricular chamber size is normal. Mild concentric left ventricular hypertrophy is observed. There is a prominent septal knuckle. Global left ventricular wall motion and contractility are within normal limits. The left ventricle appears hyperdynamic.with chordal ASHELY. The estimated ejection fraction is greater than 65%. Abnormal left ventricular diastolic filling is observed, consistent with impaired relaxation. Left Atrium: The left atrium is moderately dilated. Right Ventricle: The right ventricular chamber size and systolic function are within normal limits. Right Atrium: The right atrial cavity size is normal. Aortic Valve: The aortic valve is trileaflet. The aortic valve leaflets are mildly thickened. There is aortic annular calcification. There is no evidence of aortic regurgitation. There is borderline aortic stenosis present.ASHELY and pre aortic stenosis impacts on ability to accurately evaluate aortic valve. The mean gradient of the aortic valve is 10.5 mmHg. The aortic valve area, by peak velocities, is calculated at 2.2 cm2. Mitral Valve: Moderate mitral annular calcification present. The mitral valve leaflets are mildly thickened. There is a trace of mitral regurgitation. There is mild mitral stenosis. Tricuspid Valve: The tricuspid valve leaflets are mildly thickened. There is mild tricuspid regurgitation. There is evidence of moderate pulmonary hypertension. Pulmonic Valve: There is no evidence of pulmonic valve thickening. There is mild pulmonic regurgitation. Pericardium: There is no significant pericardial effusion. Ascites noted in apical and subcostal views. Aorta: The aortic root appears normal. The aortic arch is not well visualized. Pulmonary Artery: The main pulmonary artery appears normal. Venous: The inferior vena cava is dilated. There is no change in the dimension of the inferior vena cava with respiration consistent with markedly increased right atrial pressure. Conclusions Mild concentric left ventricular hypertrophy is observed. The left ventricle appears hyperdynamic with chordal ASHELY, dagger shaped LVOT velocity envelopes up to 3 m/s . The estimated ejection fraction is greater than 65%. Abnormal left ventricular diastolic filling is observed, consistent with impaired relaxation. The right ventricular chamber size and systolic function are within normal limits. The aortic valve leaflets are mildly thickened with good excursion. No evidence of significant stenosis, see text. Moderate mitral annular calcification present, posterior. The mitral valve leaflets are mildly thickened, anterior leaflet sclerosis. There is a trace of mitral regurgitation. There is mild mitral stenosis due to posterior MAC, normal anterior leaflet excursion. There is mild tricuspid regurgitation. There is evidence of moderate pulmonary hypertension: 53 mmHg. No prior echo to compare. Measurements Name Value Normal Range RVIDd (AP) 2D 3.1 cm (0.9 - 2.6) RVDdMajor (2D) 3.3 cm (2.2 - 4.4) RAd ISD 4CH 4.4 cm (3.4 - 4.9) RA (A4C)W 3.6 cm (2.9 - 4.6) IVSd (2D) 1.3 cm (0.6 - 1) LVPWd (2D) 1.3 cm (0.6 - 1) LVIDd (2D) 3.8 cm (3.6 - 5.4) LVIDs (2D) 2.1 cm - LV FS (2D) 44 % (25 - 45) Aortic Annulus 2 cm (1.4 - 2.6) Ao root diameter (2D) 3.1 cm (2.1 - 3.5) Ascending Ao 3 cm (2.1 - 3.4) LA dimension (AP) 2D 4.5 cm (2.3 - 3.8) LAd ISD 4CH 6.3 cm (2.9 - 5.3) LA ISD 4CH W 5.7 cm (2.5 - 4.5) Name Value Normal Range LA ESV SP 4CH (A/L) 136.64 ml - LA ESV SP 4CH (MOD) 127.24 ml - Name Value Normal Range MV E-wave Vmax 1 m/sec - MV deceleration time 178 msec - MV A-wave Vmax 1.5 m/sec - MV E:A ratio 0.7 ratio - P. vein S-wave Vmax 0.7 m/sec - P. vein D-wave Vmax 0.4 m/sec - P. vein S:D Vmax ratio 1.9 ratio - P. vein A-wave duration 93.4 msec - LV septal e' Vmax 0.07 m/sec - LV lateral e' Vmax 0.07 m/sec - LV E:e' septal ratio 14.3 ratio - LV E:e' lateral ratio 14.3 ratio - Name Value Normal Range AV Vmax 2.1 m/sec - AV VTI 39.4 cm - AV peak gradient 18 mmHg - AV mean gradient 10.5 mmHg - LVOT diameter 2 cm - LVOT Vmax 1.5 m/sec - LVOT VTI 32 cm - LVOT peak gradient 9 mmHg - LVOT mean gradient 5.5 mmHg - DOI (VTI) 0.8 ratio - LIBAN (continuity Vmax) 2.2 cm2 - LIBAN (continuity VTI) 2.6 cm2 - NORAH Vmax 1 m/sec - Name Value Normal Range MV Vmax 2 m/sec - MV VTI 35.5 cm - MV peak gradient 16 mmHg - MV mean gradient 6.3 mmHg - MV PHT 48 msec - MVA (PHT) 4.6 cm2 - MVA (continuity VTI) 3 cm2 - Name Value Normal Range TR Vmax 3.1 m/sec - TR peak gradient 38 mmHg - RAP 15 mmHg - RVSP 53 mmHg - IVC diameter 3 cm - Name Value Normal Range PV Vmax 1.4 m/sec - PV peak gradient 8.15 mmHg -
[2016-11-25 16:06] LABS: Urine Bacteria Absent (Absent); Urine Bilirubin Negative (Negative); Urine Glucose Negative (Negative); Urine Nitrite Negative (Negative)
[2016-11-25] MEDS ORDERED: cefTRIAXone* 1 GM in NS 0.9% 50 ML BAG IVPB SCH (19:30)
[2016-11-25] MEDS: Morphine INJ* 2 MG/ML 1 ML SYRINGE IV PRN (23:23)
[2016-11-26] MEDS ORDERED: Furosemide IV* 10 MG/ML 10 ML VIAL (100 MG) IV ONE (00:10)
[2016-11-26] MEDS: Morphine INJ* 2 MG/ML 1 ML SYRINGE IV PRN ×2 (03:36→13:49)
--- NOTE | 2016-11-26 07:42 | RAD ---
HISTORY: Shortness of breath COMPARISONS: November 24, 2016 VIEWS: 1: Frontal portable views of the chest at 11:13 PM FINDINGS: LINES AND TUBES: None. CARDIOMEDIASTINAL SILHOUETTE: The cardiomediastinal silhouette is normal for portable technique. PLEURA: There is elevation of the right hemidiaphragm stable LUNG PARENCHYMA: The lung volumes are low. The lungs are clear accounting for the phase of respiration. ABDOMEN: The upper abdomen is clear. There is no subphrenic gas. BONES AND SOFT TISSUES: No bone or soft tissue abnormalities are noted. IMPRESSION: LOW LUNG VOLUMES WITH PERSISTENT ELEVATION OF THE RIGHT HEMIDIAPHRAGM
[2016-11-26] MEDS: Magnesium Oxide TAB* 400 MG PO SCH (09:13)
[2016-11-26] MEDS: Sertraline* 100 MG TAB PO SCH (09:13)
[2016-11-26] MEDS: Folic Acid TAB* 1 MG PO SCH (09:13)
[2016-11-26] MEDS: Lactulose* 15 ML UDC PO SCH ×3 (09:14→22:29)
[2016-11-26] MEDS: Multivitamins/Minerals TAB PO SCH (09:14)
[2016-11-26] MEDS: Thiamine TAB* 100 MG TAB PO SCH (09:14)
[2016-11-26] MEDS: Omeprazole CAP* 20 MG PO SCH (09:14)
[2016-11-26] MEDS: Albumin Human 25%* 200 ML in PREMIX* 0 ML IV SCH (09:15)
--- NOTE | 2016-11-26 14:20 | PN ---
Subjective Date of Service: 11/26/16 Interval History: Patient seen and examined at bedside. Denies fever, chest discomfort, shortness of breath, N/V/D. Pt states that she is always cold. Pt also reports back pain, which she just received morphine for. Pt states that her breathing is much better since the paracentesis. Pt's friend Kiana is at bedside, she states that the patient was doing well on Wednesday when she took her shopping. Per Kiana Pt laid on floor for about a day when she was unable to get up. Her son had been staying with her for a few days , it is unclear why he had been staying with her. Tele: Sinus rhythm, rate 70-100's Family History: Unchanged from Admission Social History: Unchanged from Admission Past Medical History: Unchanged from Admission Objective Active Medications: Dextrose (D50w Syringe 50 Ml*) 25 gm IV PUSH ONCE PRN Reason: FS < 60 Folic Acid (Folvite Tab*) 1 mg PO DAILY [facility] Sodium Chloride (Ns 0.9% 1000 Ml*) 1,000 mls @ 75 mls/hr IV PER RATE [facility] Ceftriaxone Sodium 1,000 mg/ (Sodium Chloride) 50 mls @ 200 mls/hr IVPB Q24H [facility] Lactulose (Lactulose*) 15 ml PO TID [facility] Lorazepam (Ativan Tab(*)) 0 - 6 mg PO .PER [facility] PROTOCOL [facility] Reason: Protocol Magnesium Oxide (Magox 400 Tab*) 400 mg PO DAILY [facility] Morphine Sulfate (Morphine Inj (Syringe)*) 2 mg IV Q4H PRN Reason: Pain/ respiratory distress Multivitamins/Minerals (Theragran/Minerals Tab*) 1 tab PO DAILY [facility] Omeprazole (Prilosec Cap*) 20 mg PO DAILY@0600 [facility] Ondansetron HCl (Zofran Inj*) 4 mg IV Q4H PRN Reason: NAUSEA/VOMITING Sertraline HCl (Zoloft*) 100 mg PO DAILY [facility] Thiamine HCl (Vitamin B-1 Tab*) 100 mg PO DAILY [facility] Vital Signs 11/25/16 11/25/16 11/25/16 15:53 18:14 19:01 Temperature 98.4 F 97.6 F Pulse Rate 95 91 Respiratory 20 20 20 Rate Blood Pressure 116/53 116/51 (mmHg) O2 Sat by Pulse 94 97 Oximetry 08/11/25/16 11/25/16 19:18 20:00 20:12 Temperature 98.5 F 98.3 F Pulse Rate 94 92 Respiratory 20 20 20 Rate Blood Pressure 106/54 113/55 (mmHg) O2 Sat by Pulse 97 99 Oximetry 11/25/16 11/25/16 11/25/16 21:07 22:53 23:23 Temperature 99.9 F 99.3 F Pulse Rate 93 110 Respiratory 28 36 24 Rate Blood Pressure 116/49 140/71 (mmHg) O2 Sat by Pulse 99 97 Oximetry 11/26/16 11/26/16 11/26/16 00:23 01:08 03:20 Temperature 98.5 F 99.2 F Pulse Rate 100 92 Respiratory 28 24 24 Rate Blood Pressure 139/66 132/72 (mmHg) O2 Sat by Pulse 96 100 Oximetry 11/26/16 11/26/16 11/26/16 03:36 04:29 05:08 Temperature 98.5 F Pulse Rate 92 Respiratory 26 20 20 Rate Blood Pressure 126/73 (mmHg) O2 Sat by Pulse 98 Oximetry 11/26/16 11/26/16 11/26/16 07:00 07:17 09:20 Temperature 97.8 F 97.9 F Pulse Rate 89 85 Respiratory 22 22 22 Rate Blood Pressure 126/51 122/52 (mmHg) O2 Sat by Pulse 99 98 Oximetry 11/26/16 11/26/16 11/26/16 09:53 13:49 13:56 Temperature 98.2 F 97.7 F Pulse Rate 83 85 Respiratory 22 22 22 Rate Blood Pressure 116/60 117/48 (mmHg) O2 Sat by Pulse 99 100 Oximetry Oxygen Devices in Use Now: None Appearance: NAD, laying in bed Eyes: - - Slight bilateral scleral icterus Ears/Nose/Mouth/Throat: Mucous Membranes Moist Respiratory: Symmetrical Chest Expansion and Respiratory Effort, Clear to Auscultation Cardiovascular: RRR, - - 3/6 murmur Abdominal: - - Abdomen soft, tender throughout, non distended Extremities: - - 2+ bilateral LE edema Neurological: Alert and Oriented x 3 - , with confusion, NL Muscle Strength and Tone Lines/Tubes/Other Access: Clean, Dry and Intact Peripheral IV - site benign Nutrition: Taking PO's Result Diagrams: 11/25/16 04:47 11/25/16 13:49 Additional Lab and Data: Laboratory Tests 11/24/16 11/25/16 15:30 04:47 INR (Anticoag Therapy) 2.38 H 2.49 H Microbiology and Other Data: Microbiology 11/24/16 18:30 Gram Stain - Final Body Fluid - Peritoneal Assess/Plan/Problems-Billing Assessment: Ms. Vidal is a 61 yo female with liver cirrhosis associated with alcoholism and hep C as well as chronic pain, HTN, and anxiety who presented with confusion and abdominal pain. Admitted with concern for SBP, but now appears to be acute alcoholic hepatitis with hepatorenal syndrome. - Patient Problems (1) Acute on chronic alcoholic liver disease Code(s): K70.9 - ALCOHOLIC LIVER DISEASE, UNSPECIFIED SNOMED Code(s): 873877078 Comment: - Inital concern for SBP, but this is not supported by peritoneal fluid analysis - High MELD score (33 on admission, 34 today) with associated hepatorenal syndrome - Appreciate GI consultation - No evidence of acute alcohol withdrawal - She does appears mildly encephalopathic, continue increased lactulose - Request for high volume paracentesis and give albumin per GI recommendation to support renal fxn - GI advised against corticosteroids at this time - GI prophylaxis with PPI (2) Hepatorenal syndrome Code(s): K76.7 - HEPATORENAL SYNDROME SNOMED Code(s): 13033711 Comment: - This is a new finding and poor prognostic indicator - Giving albumin per GI recommendation - Diuretics held - S/P large volume paracentesis today (3) Hepatic encephalopathy Code(s): K72.90 - HEPATIC FAILURE, UNSPECIFIED WITHOUT COMA SNOMED Code(s): 59903392 Comment: - Continues to have confusion - No BM - Will increase lactulose today - Check ammonia level in the AM (4) Abnormal finding on urinalysis Code(s): R82.90 - UNSPECIFIED ABNORMAL FINDINGS IN URINE SNOMED Code(s): 394500028 Comment: - Possible UTI - Pending cx - Cover empirically with ceftriaxone (5) Heart murmur Code(s): R01.1 - CARDIAC MURMUR, UNSPECIFIED SNOMED Code(s): 41237361 Comment: - No prior mention of valvular heart disease - TTE - mild LVH, no evidence of significant , mild atrial annular calcification, mild MS, and mild TR. (6) Demand ischemia Code(s): I24.8 - OTHER FORMS OF ACUTE ISCHEMIC HEART DISEASE SNOMED Code(s): 741039166 Comment: - Troponin stable - No c/o CP - No ischemic changes on EKG (7) Hyperkalemia Code(s): E87.5 - HYPERKALEMIA SNOMED Code(s): 47260061 Comment: - Likely due to acute renal dysfunction - Continue to treat medically - No changes on telemetry - Additional insulin with dextrose and lactulose given yesterday (8) Leukocytosis Code(s): D72.829 - ELEVATED WHITE BLOOD CELL COUNT, UNSPECIFIED SNOMED Code(s) : 945215498 Comment: - Perhaps due to hepatitis v UTI - Pending urine cx (9) Metabolic acidosis Code(s): E87.2 - ACIDOSIS SNOMED Code(s): 09136154 Comment: - Likely due to renal dysfunction - No evidence of sepsis (10) Thrombocytopenia Code(s): D69.6 - THROMBOCYTOPENIA, UNSPECIFIED SNOMED Code(s): 232330384 Comment: - Secondary to liver cirrhosis (11) DVT prophylaxis Code(s): SWT4602 - SNOMED Code(s): 963248311 Comment: - SCDs only in the setting of thrombocytopenia (12) DNR (do not resuscitate) Status and Disposition: Inpatient. Anticipate extended LOS > 3 days.
[2016-11-26 16:02] LABS: Total Protein, BF 0.8 g/dL
[2016-11-26] MEDS: NS 0.9% 1000 ML* 1,000 ML IV SCH (17:00)
[2016-11-27 05:07] LABS: Hematocrit 29 % (35-47); Hemoglobin 9.7 g/dl (12.0-16.0); Mean Corpuscular HGB Conc 34 g/dl (31-36); Mean Corpuscular Hemoglobin 35 pg (27-31); Mean Corpuscular Volume 105 fL (80-97); Mean Platelet Volume 8 um3 (7.4-10.4); Red Blood Count 2.76 10^6/ul (4.0-5.4); Red Cell Distribution Width 15 % (10.5-15); White Blood Count 11.8 10^3/ul (3.5-10.8)
[2016-11-27 05:21] LABS: BUN/Creatinine Ratio 19.4 (8-20); Calcium 8.6 mg/dL (8.6-10.3); Globulin 3.6 g/dL (2-4); Potassium 4.1 mmol/L (3.5-5.0); Total Bilirubin 8.5 mg/dL (0.2-1.0); Total Protein 6.6 g/dL (6.4-8.9)
[2016-11-27 05:22] LABS: Comments Flag Yes
[2016-11-27] MEDS: NS 0.9% 1000 ML* 1,000 ML IV SCH (06:26)
--- NOTE | 2016-11-27 09:05 | OP ---
CC: Dr. Ashley Cordova; [facility] * DATE OF OPERATION: 11/26/16 - ROOM #449 DATE OF : 57 SURGEON: Tian Jeffries MD SEAFOOD PACKER: None. ANESTHESIOLOGIST: None. PRE-OP DIAGNOSIS: Ascites secondary to hepatic failure. POST-OP DIAGNOSIS: Ascites secondary to hepatic failure. OPERATIVE PROCEDURE: Ultrasound-guided paracentesis. DESCRIPTION OF PROCEDURE: The patient was in the surgical procedure room lying supine and ultrasound was carried out. The optimal area seems to be in the right paraumbilical region where there was a sizeable pocket of clear fluid and after sterile prep and drape local anesthetic was administered. Skinny needle identifies clear fluid and paracentesis catheter was then advanced into the site and attached to the suction bottles. A total of about 8800 mL was forthcoming. She tolerated this well. Catheter was then removed. Pressure was held for hemostasis for about five minutes placed and gauzed bandage was placed. She tolerated this well and was brought back to her room upon the medical floor. [id number]/[facility] #: [id number] [facility]ITAL[facility]uv[facility]
[2016-11-27] MEDS: Multivitamins/Minerals TAB PO SCH (09:39)
[2016-11-27] MEDS: Omeprazole CAP* 20 MG PO SCH (09:39)
[2016-11-27] MEDS: Folic Acid TAB* 1 MG PO SCH (09:39)
[2016-11-27] MEDS: Magnesium Oxide TAB* 400 MG PO SCH (09:39)
[2016-11-27] MEDS: Thiamine TAB* 100 MG TAB PO SCH (09:41)
[2016-11-27] MEDS: Sertraline* 100 MG TAB PO SCH (09:42)
[2016-11-27] MEDS: Lactulose* 15 ML UDC PO SCH ×4 (09:42→21:51)
[2016-11-27] MEDS ORDERED: Senna TAB PO PRN (12:19)
[2016-11-27] MEDS ORDERED: Docusate CAP* 100 MG PO PRN (12:19)
[2016-11-27] MEDS: Morphine ORAL CONCENTRATE* 5 MG/0.25 ML ORAL.SYRIN SL PRN ×2 (15:35→21:12)
--- NOTE | 2016-11-27 15:58 | PN ---
Subjective Date of Service: 11/27/16 Interval History: Patient seen and examined at bedside. Pt continues to have some confusion. Denies fever, chills, chest discomfort, N/V/D. Pt has some shortness of breath due to her large abdomen. Healthcare proxies Kiana and Theresa at bedside. Had a long discussion with them regarding poor prognosis. They could like comfort care measures. Pt's sons and brother will be here over the weekend to discuss the Pt's diagnosis and prognosis. Tele: Sinus rhythm, rate 80's. Family History: Unchanged from Admission Social History: Unchanged from Admission Past Medical History: Unchanged from Admission Objective Active Medications: Dextrose (D50w Syringe 50 Ml*) 25 gm IV PUSH ONCE PRN Reason: FS < 60 Dextrose (D50w Syringe 50 Ml*) 25 gm IV PUSH ONCE PRN Reason: FS < 60 Docusate Sodium (Colace Cap*) 100 mg PO BID PRN Reason: CONSTIPATION Folic Acid (Folvite Tab*) 1 mg PO DAILY [facility] Sodium Chloride (Ns 0.9% 1000 Ml*) 1,000 mls @ 75 mls/hr IV PER RATE [facility] Lactulose (Lactulose*) 30 ml PO QID [facility] Lorazepam (Ativan Tab(*)) 0 - [address] [facility] PROTOCOL [facility] Reason: Protocol Magnesium Oxide (Magox 400 Tab*) 400 mg PO DAILY [facility] Morphine Sulfate (Morphine Oral Concentrate*) 2.5 mg SL Q2H PRN Reason: PAIN Multivitamins/Minerals (Theragran/Minerals Tab*) 1 tab PO DAILY [facility] Omeprazole (Prilosec Cap*) 20 mg PO DAILY@0600 [facility] Ondansetron HCl (Zofran Inj*) 4 mg IV Q4H PRN Reason: NAUSEA/VOMITING Sertraline HCl (Zoloft*) 100 mg PO DAILY [facility] Thiamine HCl (Vitamin B-1 Tab*) 100 mg PO DAILY [facility] Vital Signs 11/26/16 11/26/16 11/26/16 17:12 19:27 20:00 Temperature 97.8 F 98.3 F Pulse Rate 81 83 Respiratory 16 20 16 Rate Blood Pressure 100/45 106/52 (mmHg) O2 Sat by Pulse 100 100 Oximetry 11/26/16 11/27/16 11/27/16 23:31 01:11 03:06 Temperature 98.6 F 99.7 F 97.7 F Pulse Rate 94 92 93 Respiratory 20 20 20 Rate Blood Pressure 119/59 125/58 125/61 (mmHg) O2 Sat by Pulse 95 98 99 Oximetry 11/27/16 11/27/16 11/27/16 05:17 07:30 08:00 Temperature 99.3 F 98.5 F Pulse Rate 90 91 Respiratory 20 22 19 Rate Blood Pressure 128/61 109/58 (mmHg) O2 Sat by Pulse 98 96 Oximetry 11/27/16 11/27/16 11/27/16 09:52 11:17 15:22 Temperature 97.4 F Pulse Rate 90 88 89 Respiratory 18 20 18 Rate Blood Pressure 109/64 127/58 130/58 (mmHg) O2 Sat by Pulse 98 99 100 Oximetry Oxygen Devices in Use Now: None Appearance: NAD, laying in bed Eyes: - - mild scleral icterus Ears/Nose/Mouth/Throat: Mucous Membranes Moist Respiratory: Symmetrical Chest Expansion and Respiratory Effort, Clear to Auscultation Cardiovascular: NL Sounds; No Murmurs; No JVD, RRR Abdominal: NL Sounds; No Tenderness; No Distention, - - Gravid appearing abdomen , fluid wave noted Extremities: - - Trace to 1+ bilateral LE Neurological: NL Muscle Strength and Tone, - - Alert and Oriented to person and place, confused Lines/Tubes/Other Access: Clean, Dry and Intact Peripheral IV - site benign Nutrition: Taking PO's Result Diagrams: 11/27/16 04:53 11/27/16 04:53 Additional Lab and Data: Laboratory Tests 11/24/16 11/25/16 15:30 04:47 INR (Anticoag Therapy) 2.38 H 2.49 H Microbiology and Other Data: Microbiology 11/24/16 18:30 Gram Stain - Final Body Fluid - Peritoneal Assess/Plan/Problems-Billing Assessment: Ms. Vidal is a 61 yo female with liver cirrhosis associated with alcoholism and hep C as well as chronic pain, HTN, and anxiety who presented with confusion and abdominal pain. Admitted with concern for SBP, but now appears to be acute alcoholic hepatitis with hepatorenal syndrome. - Patient Problems (1) Acute on chronic alcoholic liver disease Code(s): K70.9 - ALCOHOLIC LIVER DISEASE, UNSPECIFIED SNOMED Code(s): 245799313 Comment: - Inital concern for SBP, but this is not supported by peritoneal fluid analysis - High MELD score (33 on admission, 37 today) with associated hepatorenal syndrome - Appreciate GI consultation - No evidence of acute alcohol withdrawal - She does appears mildly encephalopathic, continue increased lactulose - S/P high volume paracentesis (done 11/26 with ~9L taken off) and give albumin per GI recommendation to support renal fxn - GI advised against corticosteroids at this time - GI prophylaxis with PPI - Palliative consult, input appreciated (2) Hepatorenal syndrome Code(s): K76.7 - HEPATORENAL SYNDROME SNOMED Code(s): 34061553 Comment: - This is a new finding and poor prognostic indicator - Giving albumin per GI recommendation - S/P large volume paracentesis 11/26 (3) Hepatic encephalopathy Code(s): K72.90 - HEPATIC FAILURE, UNSPECIFIED WITHOUT COMA SNOMED Code(s): 80498178 Comment: - Continues to have confusion - Only 1 BM today - Will increase lactulose today - Will follow ammonia level (4) Abnormal finding on urinalysis Code(s): R82.90 - UNSPECIFIED ABNORMAL FINDINGS IN URINE SNOMED Code(s): 789176799 Comment: - Possible UTI - Urine cx, no growth - Discontinued ceftriaxone (5) Heart murmur Code(s): R01.1 - CARDIAC MURMUR, UNSPECIFIED SNOMED Code(s): 52897490 Comment: - No prior mention of valvular heart disease - TTE - mild LVH, no evidence of significant , mild atrial annular calcification, mild MS, and mild TR. (6) Demand ischemia Code(s): I24.8 - OTHER FORMS OF ACUTE ISCHEMIC HEART DISEASE SNOMED Code(s): 383863605 Comment: - Troponin stable - No c/o CP - No ischemic changes on EKG (7) Hyperkalemia Code(s): E87.5 - HYPERKALEMIA SNOMED Code(s): 01280195 Comment: - Resolved - Likely due to acute renal dysfunction - No changes on telemetry (8) Leukocytosis Code(s): D72.829 - ELEVATED WHITE BLOOD CELL COUNT, UNSPECIFIED SNOMED Code(s) : 007755450 Comment: - Perhaps due to hepatitis - Urine cx with no growth (9) Metabolic acidosis Code(s): E87.2 - ACIDOSIS SNOMED Code(s): 71772434 Comment: - Likely due to renal dysfunction - No evidence of sepsis (10) Thrombocytopenia Code(s): D69.6 - THROMBOCYTOPENIA, UNSPECIFIED SNOMED Code(s): 378792058 Comment: - Secondary to liver cirrhosis (11) DVT prophylaxis Code(s): ZHC2223 - SNOMED Code(s): 502024450 Comment: - SCDs only in the setting of thrombocytopenia (12) DNR (do not resuscitate) Status and Disposition: Inpatient. Anticipate extended LOS > 3 days. Plan for discharge to [place] with Hospice.
--- NOTE | 2016-11-27 21:48 | CONS ---
CC: Dr. Ashley Cordova * PALLIATIVE CARE CONSULTATION: DATE OF CONSULTATION: 11/27/16 PRIMARY CARE PHYSICIAN: Ashley Cordova MD REFERRING PHYSICIAN: Chrissy Florian NP HOSPITAL COURSE: This is a 61-year-old female with a past medical history of liver cirrhosis secondary to hepatitis C and alcoholism with hepatorenal syndrome, who presents for the second time this month with altered mental status , found to have hepatic encephalopathy. On my encounter, the patient is present with her friend, Theresa Ham, who is also her healthcare proxy. The patient states that she fell down and was down for 5 days. The friend clarifies that it was only for a day that she had fallen. When I asked her when her last drink was, she states it was several weeks ago; however, the friend states she has found a lot of liquor bottles everywhere as of last week. I also asked if she was taking her medications as indicated and she stated she was. The friend states that there are bottles and buckets of pills everywhere. It does not seem to appear that she has been compliant with her medications. The friend is concerned that she was recently here and she was discharged rather quickly and they were concerned about her safety and her compliance at home. On admission here, the patient was found to have significant ascites with worsening renal failure and liver failure. She did have a paracentesis done yesterday, 11/26/16, by Dr. Jeffries and he did take off almost 9 L of fluid, which has improved her breathing. On my encounter, I spoke with the patient. She states she still has a lot of pain. The friend states she is concerned about her opioid use and taking too many oxycodone, which is making her more sleepy and sedated and is trying to restrict her use from that. She also is having some shortness of breath. She is also having difficulty with eating and verbally interacting and as the friend states she also has a lot of confusion, they often do not know if it is due to the alcohol or if it is due to her liver failure. I spoke with the patient and the friend at length and they got the secondary proxy, Kiana, on the phone as well and I discussed that she has end-stage liver disease and significant renal failure with a MELD score of 36, which makes her eligible for hospice. Then, I also touched base about the fact that she is not safe to be discharged to home due to her encephalopathy and her unreliability and her safety concern. We discussed options of detention with hospice or hospice residence if the bed becomes available as of 12/01/16. We also modified the MOLST form to reflect a DNR/DNI and a do not re-hospitalize. I did state that I would speak with Gastroenterology regarding my recommendation and if they recommend any other intervention that may improve her end-stage liver disease and I am waiting to hear back from Dr. Jones. The patient also with urinary and stool incontinence and increase in falls; otherwise, remaining review of systems is negative. PAST MEDICAL HISTORY: 1. 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 2. Hepatitis C. 3. Hepatorenal syndrome. 4. Acute worsening renal failure. 5. Anxiety. 6. Chronic pain. 7. Hypertension. 8. Diastolic dysfunction. 9. Moderate pulmonary hypertension. 10. Hepatic encephalopathy. PAST SURGICAL HISTORY: She required an oversew of a peptic ulcer that was subsequently bleeding. Multiple unspecified surgeries of both of her feet. INPATIENT MEDICATIONS: 1. Folic acid 1 mg p.o. daily. 2. She is on a [facility] lorazepam protocol. 3. Lactulose 30 mL p.o. t.i.d. 4. Magnesium oxide 400 mg daily. 5. Morphine 2 mg IV q.4 hours as needed. 6. Multivitamin daily. 7. Normal saline at 75 cc and hour. 8. Omeprazole 20 mg daily. 9. Zofran 4 mg every 4 hours as needed. 10. Zoloft 100 mg p.o. daily. 11. Thiamine 100 mg p.o. daily. ALLERGIES: IBUPROFEN and ZOLPIDEM. FAMILY HISTORY: The patient has a significant family history of alcohol abuse. SOCIAL HISTORY: As mentioned, the patient lives at home. She is a long-term significant heavy drinker. Occasionally uses marijuana. No smoking history. Her healthcare proxies are Theresa Ham and Michaelle Killian. She does have 2 brothers and 2 sons, who are planning to come visit her as well. Her MOLST form is DNR/DNI. We did modify this to be a DNR/DNI with comfort measures and do not re-hospitalize. REVIEW OF SYSTEMS: A 14-point review of systems as mentioned in the HPI. Positive pertinent and negatives as mentioned in the HPI, otherwise negative. DIAGNOSTIC STUDIES/LAB DATA: White count 11.8, hemoglobin 9.7, hematocrit 29, platelets 32. INR is 2.49. Sodium 133, potassium 4.1, chloride 101, bicarb 15 , BUN 65, creatinine 3.35, glucose 128. Total bili 8.5, AST 137, ALT 154, alk phos 108. Ammonia is 119. Albumin is 3. ASSESSMENT: This is a 61-year-old female with a past medical history of end- stage liver disease secondary to alcohol use and hepatitis C with hepatorenal syndrome, who has had worsening renal and liver failure over the past month in the setting of continued alcohol use and noncompliance. The patient appears to have capacity at this time to make medical decisions and we discussed her MOLST form with her healthcare proxy present and she does wish to be a DNR/DNI, do no re-hospitalize and knows that she is eligible for hospice with a diagnosis of end-stage liver disease, secondary diagnosis of renal failure. I did state that I will follow up with Gastroenterology to make sure there is no further intervention that will improve her outcome and I also put in for a swallow evaluation as I am concerned that she has a high aspiration risk, but the family says she has a hard time eating regular food and I switched her IV morphine to oral morphine as well 2.5 mg every 2 hours and I will relay my changes to the primary care team. I would recommend discontinuing her fluids and starting her back on her regimen for her end-stage liver disease. Our palliative care team will follow up with the patient and the family regarding disposition, planning she may be a good candidate for the hospice residence. Thank you for this consultation. I will follow along with you. PATIENT TIME: Greater than 120 minutes spent doing the consultation, more than half the time spent in direct patient contact. [id number]/[facility] #: [id number] [place]
[2016-11-28] MEDS: Morphine ORAL CONCENTRATE* 5 MG/0.25 ML ORAL.SYRIN SL PRN ×5 (00:41→20:45)
[2016-11-28] MEDS: Omeprazole CAP* 20 MG PO SCH (05:51)
[2016-11-28 08:45] LABS: ALT 134 U/L (7-52); Alkaline Phosphatase 117 U/L (34-104); BUN/Creatinine Ratio 21.2 (8-20); Blood Urea Nitrogen 72 mg/dL (6-24); Calcium 8.7 mg/dL (8.6-10.3); Chloride 111 mmol/L (101-111); EGFR African American 17.8 (>60); EGFR Non-African American 13.8 (>60); Globulin 4.1 g/dL (2-4); Glucose 149 mg/dL (70-100); Sodium 134 mmol/L (133-145); Total Protein 7.1 g/dL (6.4-8.9)
[2016-11-28 08:49] LABS: Anion Gap 9 mmol/L (2-11); CO2 Carbon Dioxide 14 mmol/L (22-32)
[2016-11-28] MEDS: Lactulose* 15 ML UDC PO SCH ×4 (08:59→20:47)
[2016-11-28] MEDS: Magnesium Oxide TAB* 400 MG PO SCH (08:59)
[2016-11-28] MEDS: Folic Acid TAB* 1 MG PO SCH (09:00)
[2016-11-28] MEDS: Sertraline* 100 MG TAB PO SCH (09:00)
[2016-11-28] MEDS: Multivitamins/Minerals TAB PO SCH (09:00)
[2016-11-28] MEDS: Thiamine TAB* 100 MG TAB PO SCH (09:01)
--- NOTE | 2016-11-28 09:47 | PN ---
Subjective Date of Service: 11/28/16 Interval History: Patient seen and examined at bedside. Pt states that she is short of breath today, due to her abdominal distention. Denies fever, chills, chest discomfort, N/V/D. Pt continues to have confusion and is declining lactulose. Family History: Unchanged from Admission Social History: Unchanged from Admission Past Medical History: Unchanged from Admission Objective Active Medications: Dextrose (D50w Syringe 50 Ml*) 25 gm IV PUSH ONCE PRN Reason: FS < 60 Dextrose (D50w Syringe 50 Ml*) 25 gm IV PUSH ONCE PRN Reason: FS < 60 Docusate Sodium (Colace Cap*) 100 mg PO BID PRN Reason: CONSTIPATION Folic Acid (Folvite Tab*) 1 mg PO DAILY [facility] Lactulose (Lactulose*) 30 ml PO QID [facility] Lorazepam (Ativan Tab(*)) 0 - 6 mg PO .PER [facility] PROTOCOL [facility] Reason: Protocol Magnesium Oxide (Magox 400 Tab*) 400 mg PO DAILY [facility] Morphine Sulfate (Morphine Oral Concentrate*) 2.5 mg SL Q2H PRN Reason: PAIN Multivitamins/Minerals (Theragran/Minerals Tab*) 1 tab PO DAILY [facility] Omeprazole (Prilosec Cap*) 20 mg PO DAILY@0600 [facility] Ondansetron HCl (Zofran Inj*) 4 mg IV Q4H PRN Reason: NAUSEA/VOMITING Sertraline HCl (Zoloft*) 100 mg PO DAILY [facility] Thiamine HCl (Vitamin B-1 Tab*) 100 mg PO DAILY [facility] Vital Signs 11/27/16 11/27/16 11/27/16 09:52 11:17 15:22 Temperature 97.4 F Pulse Rate 90 88 89 Respiratory 18 20 18 Rate Blood Pressure 109/64 127/58 130/58 (mmHg) O2 Sat by Pulse 98 99 100 Oximetry 11/27/16 11/27/16 11/27/16 20:04 21:12 22:22 Temperature 97.4 F 97.4 F Pulse Rate 88 95 Respiratory 20 24 20 Rate Blood Pressure 136/62 130/49 (mmHg) O2 Sat by Pulse 99 96 Oximetry 11/27/16 11/27/16 11/28/16 23:00 23:12 00:16 Temperature 97.7 F 97.4 F Pulse Rate 95 96 Respiratory 20 20 16 Rate Blood Pressure 140/64 144/66 (mmHg) O2 Sat by Pulse 98 96 Oximetry 11/28/16 11/28/16 11/28/16 00:41 02:27 02:39 Temperature 97.5 F Pulse Rate 99 Respiratory 22 20 22 Rate Blood Pressure 153/70 (mmHg) O2 Sat by Pulse 96 Oximetry 11/28/16 11/28/16 11/28/16 04:31 04:55 04:58 Temperature 97.7 F 97.9 F Pulse Rate 102 102 Respiratory 20 24 24 Rate Blood Pressure 149/76 150/75 (mmHg) O2 Sat by Pulse 96 97 Oximetry 11/28/16 11/28/16 11/28/16 06:58 08:00 08:13 Temperature 98.1 F Pulse Rate 108 Respiratory 20 24 18 Rate Blood Pressure 152/74 (mmHg) O2 Sat by Pulse 96 Oximetry Oxygen Devices in Use Now: Nasal Cannula - 2L Appearance: NAD, restless sitting up in a chair Eyes: - - Scleral icterus Respiratory: Symmetrical Chest Expansion and Respiratory Effort, Clear to Auscultation Cardiovascular: NL Sounds; No Murmurs; No JVD, RRR Abdominal: - - Bowel sounds present, abdomen soft, gravid appearing and non tender Extremities: No Edema Skin: No Rash or Ulcers, - - Jaundice Neurological: - - Alert and Oriented to Person, confused Lines/Tubes/Other Access: Clean, Dry and Intact Peripheral IV - site benign Nutrition: Taking PO's Result Diagrams: 11/27/16 04:53 11/28/16 10:08 Additional Lab and Data: Laboratory Tests 11/24/16 11/25/16 15:30 04:47 INR (Anticoag Therapy) 2.38 H 2.49 H Microbiology and Other Data: Microbiology 11/24/16 18:30 Gram Stain - Final Body Fluid - Peritoneal Assess/Plan/Problems-Billing Assessment: Ms. Vidal is a 61 yo female with liver cirrhosis associated with alcoholism and hep C as well as chronic pain, HTN, and anxiety who presented with confusion and abdominal pain. Admitted with concern for SBP, but now appears to be acute alcoholic hepatitis with hepatorenal syndrome. - Patient Problems (1) Acute on chronic alcoholic liver disease Code(s): K70.9 - ALCOHOLIC LIVER DISEASE, UNSPECIFIED SNOMED Code(s): 709566311 Comment: - Inital concern for SBP, but this is not supported by peritoneal fluid analysis - High MELD score (33 on admission, 37 11/27) with associated hepatorenal syndrome - Appreciate GI consultation - No evidence of acute alcohol withdrawal - She does appears mildly encephalopathic, continue increased lactulose - S/P high volume paracentesis (done 11/26 with ~9L taken off) and give albumin per GI recommendation to support renal fxn - GI advised against corticosteroids at this time - GI prophylaxis with PPI - Palliative consult, input appreciated (2) Hepatorenal syndrome Code(s): K76.7 - HEPATORENAL SYNDROME SNOMED Code(s): 03242696 Comment: - This is a new finding and poor prognostic indicator - Giving albumin per GI recommendation - S/P large volume paracentesis 11/26 (3) Hepatic encephalopathy Code(s): K72.90 - HEPATIC FAILURE, UNSPECIFIED WITHOUT COMA SNOMED Code(s): 05846912 Comment: - Continues to have confusion - Continue lactulose - Will follow ammonia level (4) Abnormal finding on urinalysis Code(s): R82.90 - UNSPECIFIED ABNORMAL FINDINGS IN URINE SNOMED Code(s): 298812467 Comment: - Possible UTI - Urine cx, no growth - Discontinued ceftriaxone (5) Heart murmur Code(s): R01.1 - CARDIAC MURMUR, UNSPECIFIED SNOMED Code(s): 25191852 Comment: - No prior mention of valvular heart disease - TTE - mild LVH, no evidence of significant , mild atrial annular calcification, mild MS, and mild TR. (6) Demand ischemia Code(s): I24.8 - OTHER FORMS OF ACUTE ISCHEMIC HEART DISEASE SNOMED Code(s): 693215000 Comment: - Troponin stable - No c/o CP - No ischemic changes on EKG (7) Hyperkalemia Code(s): E87.5 - HYPERKALEMIA SNOMED Code(s): 89303534 Comment: - Resolved - Likely due to acute renal dysfunction - No changes on telemetry (8) Leukocytosis Code(s): D72.829 - ELEVATED WHITE BLOOD CELL COUNT, UNSPECIFIED SNOMED Code(s) : 020139311 Comment: - Perhaps due to hepatitis - Urine cx with no growth (9) Metabolic acidosis Code(s): E87.2 - ACIDOSIS SNOMED Code(s): 44469398 Comment: - Likely due to renal dysfunction - No evidence of sepsis (10) Thrombocytopenia Code(s): D69.6 - THROMBOCYTOPENIA, UNSPECIFIED SNOMED Code(s): 443609551 Comment: - Secondary to liver cirrhosis (11) DVT prophylaxis Code(s): BQA0405 - SNOMED Code(s): 900085225 Comment: - SCDs only in the setting of thrombocytopenia (12) DNR (do not resuscitate) Status and Disposition: Inpatient. Anticipate extended LOS > 3 days. Plan for discharge to [place] with Hospice.
--- NOTE | 2016-11-28 14:01 | PN ---
Progress Note - Progress Note Date of Service: 11/28/16 Note: GI PROGRESS NOTE: S: Patient seen in room with healthcare POA present. Patient alert but arousable. Unable to answer questiosn O: Temp Pulse Resp BP Pulse Ox 98.5 F 106 20 175/82 96 11/28/16 11:01 11/28/16 11:01 11/28/16 11:01 11/28/16 11:01 11/28/16 11:01 GEN: Appears chronically ill HEENT: icteric sclera CHEST: bilateral wheezes CV: Regular rate rhythm s1 s2 no rubs or gallops ABD: distended but not tense, nontender+ fluid wave EXT: no RANGEL edema LABS: Sodium 134 mmol/L (133-145) 11/28/16 06:11 Potassium 4.0 mmol/L (3.5-5.0) 11/28/16 10:08 BUN 72 mg/dL (6-24) H 11/28/16 06:11 Creatinine 3.39 mg/dL (0.51-0.95) H 11/28/16 06:11 Calcium 8.7 mg/dL (8.6-10.3) 11/28/16 06:11 Magnesium 2.5 mg/dL (1.9-2.7) 11/24/16 16:25 AST 101 U/L (13-39) H 11/28/16 10:08 ALT 134 U/L (7-52) H 11/28/16 06:11 Laboratory Last Values WBC 11.8 10^3/ul (3.5-10.8) H 11/27/16 04:53 RBC 2.76 10^6/ul (4.0-5.4) L 11/27/16 04:53 Hgb 9.7 g/dl (12.0-16.0) L 11/27/16 04:53 Hct 29 % (35-47) L 11/27/16 04:53 MCV 105 fL (80-97) H 11/27/16 04:53 MCH 35 pg (27-31) H 11/27/16 04:53 MCHC 34 g/dl (31-36) 11/27/16 04:53 RDW 15 % (10.5-15) 11/27/16 04:53 Plt Count 32 10^3/ul (150-450) L D 11/27/16 04:53 MPV 8 um3 (7.4-10.4) 11/27/16 04:53 Neut % (Auto) 89.5 % (38-83) H 11/27/16 04:53 Lymph % (Auto) 4.2 % (25-47) L 11/27/16 04:53 [place] % (Auto) 5.1 % (1-9) 11/27/16 04:53 Eos % (Auto) 0.5 % (0-6) 11/27/16 04:53 Baso % (Auto) 0.7 % (0-2) 11/27/16 04:53 Absolute Neuts (auto) 10.5 10^3/ul (1.5-7.7) H 11/27/16 04:53 Absolute Lymphs (auto) 0.5 10^3/ul (1.0-4.8) L 11/27/16 04:53 Absolute Monos (auto) 0.6 10^3/ul (0-0.8) 11/27/16 04:53 Absolute Eos (auto) 0.1 10^3/ul (0-0.6) 11/27/16 04:53 Absolute Basos (auto) 0.1 10^3/ul (0-0.2) 11/27/16 04:53 Absolute Nucleated RBC 0.01 10^3/ul 11/27/16 04:53 Nucleated RBC % 0.1 11/27/16 04:53 INR (Anticoag Therapy) 2.49 (0.89-1.11) H 11/25/16 04:47 APTT 57.1 seconds (26.0-36.3) H 11/24/16 15:30 Sodium 134 mmol/L (133-145) 11/28/16 06:11 Potassium 4.0 mmol/L (3.5-5.0) 11/28/16 10:08 Chloride 111 mmol/L (101-111) 11/28/16 06:11 Carbon Dioxide 14 mmol/L (22-32) L* 11/28/16 06:11 Anion Gap 9 mmol/L (2-11) 11/28/16 06:11 BUN 72 mg/dL (6-24) H 11/28/16 06:11 Creatinine 3.39 mg/dL (0.51-0.95) H 11/28/16 06:11 Est GFR ( Amer) 17.8 (>60) 11/28/16 06:11 Est GFR (Non-Af Amer) 13.8 (>60) 11/28/16 06:11 BUN/Creatinine Ratio 21.2 (8-20) H 11/28/16 06:11 Glucose 149 mg/dL (70-100) H 11/28/16 06:11 POC Glucose (mg/dL) 232 mg/dL (70-100) H 11/25/16 09:53 Lactic Acid 3.6 mmol/L (0.5-2.0) H* 11/24/16 20:04 Calcium 8.7 mg/dL (8.6-10.3) 11/28/16 06:11 Magnesium 2.5 mg/dL (1.9-2.7) 11/24/16 16:25 Total Bilirubin 14.10 mg/dL (0.2-1.0) H* D 11/28/16 06:11 AST 101 U/L (13-39) H 11/28/16 10:08 ALT 134 U/L (7-52) H 11/28/16 06:11 Alkaline Phosphatase 117 U/L (34-104) H 11/28/16 06:11 Ammonia 119 mol/L (16-53) H 11/27/16 04:53 Lactate Dehydrogenase 521 U/L (140-271) H 11/24/16 15:30 Total Creatine Kinase 392 U/L (10-223) H 11/24/16 15:30 Troponin I 0.04 ng/mL (<0.04) H* 11/25/16 00:47 C-Reactive Protein 25.26 mg/L (< 5.00) H 11/24/16 15:30 B-Natriuretic Peptide 178 pg/mL (-100) H 11/24/16 15:30 Total Protein 7.1 g/dL (6.4-8.9) 11/28/16 06:11 Albumin 3.0 g/dL (3.2-5.2) L 11/28/16 06:11 Globulin 4.1 g/dL (2-4) H 11/28/16 06:11 Albumin/Globulin Ratio 0.7 (1-3) L 11/28/16 06:11 Amylase 28 U/L (29-103) L 11/24/16 15:30 Lipase 53 U/L (11.0-82.0) 11/24/16 15:30 Urine Color Chantel 11/25/16 15:55 Urine Appearance Cloudy 11/25/16 15:55 Urine pH 5.0 (5-9) 11/25/16 15:55 Ur Specific [place] 1.016 (1.010-1.030) 11/25/16 15:55 Urine Protein 2+(100 mg/dl) (Negative) H 11/25/16 15:55 Urine Ketones Negative (Negative) 11/25/16 15:55 Urine Blood 3+ (Negative) H 11/25/16 15:55 Urine Nitrate Negative (Negative) 11/25/16 15:55 Urine Bilirubin Negative (Negative) 11/25/16 15:55 Urine Urobilinogen Negative (Negative) 11/25/16 15:55 Ur Leukocyte Esterase 1+ (Negative) H 11/25/16 15:55 Urine WBC (Auto) 2+(11-20/hpf) (Absent) H 11/25/16 15:55 Urine RBC (Auto) 3+(>10/hpf) (Absent) H 11/25/16 15:55 Ur Squamous Epith Cells Present (Absent) H 11/25/16 15:55 Ur Transition Epith Cell Present (Absent) H 11/25/16 09:20 Urine Bacteria Absent (Absent) 11/25/16 15:55 Hyaline Casts Present (Absent) H 11/25/16 15:55 Ur Random Creatinine 151.28 mg/dL 11/25/16 15:55 Ur Random Sodium 22 mmol/L 11/25/16 15:55 Urine Glucose Negative (Negative) 11/25/16 15:55 Fluid Source Peritoneal fluid 11/24/16 18:30 Fluid Volume 11 mL 11/24/16 18:30 Fluid Color Yellow 11/24/16 18:30 Fluid Appearance Clear 11/24/16 18:30 Fluid WBC 73 /mcL ([id number]) 11/24/16 18:30 Fluid RBC 778 /mcL 11/24/16 18:30 Fluid Tot Cell Count 100 11/24/16 18:30 Fluid Neutrophils 19 % 11/24/16 18:30 Fluid Lymphocytes 9 % 11/24/16 18:30 Fluid Monocytes 72 % 11/24/16 18:30 Fluid Cell Count Rvw By 11/24/16 18:30 Fluid Total Protein 0.8 g/dL 11/24/16 18:30 Fluid LDH 55 U/L 11/24/16 18:30 Impression: 61 year old female with decompensated HCV/ETOH cirrhosis now with worsening encephalopathy and liver enzymes. 1. Worsening hyperbilirubinemia: Her worsening bilirubin suggests worsening acute on chronic liver failure. Her prognosis is poor and mortality risk is quite high. Agree with hospice care at this time. 2. Encephalopathy: Her worsening mental status is multifactorial given she has received some opiates. Would minimize opiates as much as possible. 3. Ascites/HRS?: Can consider paracentesis prn and may consider repeat paracentesis if still in house Wednesday. For now, would restart her diuretics at Lasix 20mg IV and Aldactone 100mg for just today and assess renal function in am. 4. Cirrhosis secondary to HCV/ETOH: Decompensated disease. Would recommend oral liquid nutrition such as boost supplements for now.
[2016-11-28] MEDS ORDERED: Furosemide IV* 10 MG/ML 2 ML VIAL (20 MG) IV ONE (14:02)
[2016-11-28] MEDS: Spironolactone TAB* 25 MG PO SCH (14:55)
[2016-11-28] MEDS ORDERED: Ondansetron ODT TAB* 4 MG SL PRN (16:45)
[2016-11-28] MEDS: Furosemide TAB* 20 MG PO SCH (17:10)
[2016-11-28] MEDS: LORazepam TAB(*) 0.5 MG PO PRN (18:04)
[2016-11-29] MEDS: Morphine ORAL CONCENTRATE* 5 MG/0.25 ML ORAL.SYRIN SL PRN ×6 (01:01→16:37)
[2016-11-29] MEDS: LORazepam TAB(*) 0.5 MG PO PRN (01:02)
[2016-11-29] MEDS: Lactulose* 15 ML UDC PO SCH ×4 (09:45→21:31)
[2016-11-29] MEDS: Spironolactone TAB* 25 MG PO SCH (09:46)
[2016-11-29] MEDS: Sertraline* 100 MG TAB PO SCH (09:46)
[2016-11-29] MEDS: Furosemide TAB* 20 MG PO SCH ×2 (09:46→16:34)
--- NOTE | 2016-11-29 11:34 | PN ---
Progress Note - Progress Note Date of Service: 11/29/16 Note: S: Patient seen with brother and present. No acute events overnight.Continues to be lethargic and confused. O: Vital Signs Temp Pulse Resp BP Pulse Ox 97.6 F 98 24 161/68 97 11/28/16 15:26 11/29/16 07:40 11/29/16 09:55 11/29/16 07:40 11/29/16 07:40 GEN: Chronically ill appearing HEENT: icteric sclera CHEST: bilaterally wheezes and crackles CV: Tachycardic s1 s2 ABD: distended, nontender, +fluid wave +BS Labs: Sodium 134 mmol/L (133-145) 11/28/16 06:11 Potassium 4.0 mmol/L (3.5-5.0) 11/28/16 10:08 BUN 72 mg/dL (6-24) H 11/28/16 06:11 Creatinine 3.39 mg/dL (0.51-0.95) H 11/28/16 06:11 Calcium 8.7 mg/dL (8.6-10.3) 11/28/16 06:11 Magnesium 2.5 mg/dL (1.9-2.7) 11/24/16 16:25 AST 101 U/L (13-39) H 11/28/16 10:08 ALT 134 U/L (7-52) H 11/28/16 06:11 Impression: 61 year old female with HCV/ETOH cirrhosis that is decompensated now with acute on chronic hepatic failure. Final Recommendations: 1. Continue paracentesis prn for comfort. 2. Encourage nutritional supplements in form of boost/ensure given her mental status 3. Agree with hospice care. 4. No further recommendations at from GI standpoint at this time.
--- NOTE | 2016-11-29 12:32 | PN ---
Subjective Date of Service: 11/29/16 Interval History: Patient seen and examined at bedside. Pt is less responsive today. She appears to be resting comfortably in the bed. Family has arrived from out of state. Pt is not taking in very much to eat. Family History: Unchanged from Admission Social History: Unchanged from Admission Past Medical History: Unchanged from Admission Objective Active Medications: Furosemide (Lasix Tab*) 20 mg PO 0800,1700 ALMA ROSA Lactulose (Lactulose*) 30 ml PO QID ALMA ROSA Lorazepam (Ativan Tab(*)) 0.25 mg PO Q6H PRN Reason: ANXIETY Morphine Sulfate (Morphine Oral Concentrate*) 2.5 mg SL Q2H PRN Reason: PAIN Ondansetron HCl (Zofran Inj*) 4 mg IV Q4H PRN Reason: NAUSEA/VOMITING Ondansetron HCl (Zofran Odt Tab*) 4 mg SL Q6H PRN Reason: NAUSEA/VOMITING Sertraline HCl (Zoloft*) 100 mg PO DAILY ALMA ROSA Spironolactone (Aldactone Tab*) 100 mg PO DAILY [facility] Vital Signs 11/28/16 11/28/16 11/28/16 12:48 14:54 15:26 Temperature 97.6 F Pulse Rate 104 100 Respiratory 14 26 24 Rate Blood Pressure 165/79 161/72 (mmHg) O2 Sat by Pulse 99 97 Oximetry 11/28/16 11/28/16 11/28/16 16:41 16:42 18:04 Temperature Pulse Rate Respiratory 22 22 22 Rate Blood Pressure (mmHg) O2 Sat by Pulse Oximetry 11/28/16 11/28/16 11/28/16 18:29 20:04 20:29 Temperature Pulse Rate Respiratory 24 20 20 Rate Blood Pressure (mmHg) O2 Sat by Pulse Oximetry 11/28/16 11/28/16 11/28/16 20:33 20:45 22:45 Temperature Pulse Rate Respiratory 20 20 20 Rate Blood Pressure (mmHg) O2 Sat by Pulse Oximetry 11/29/16 11/29/16 11/29/16 01:01 01:02 03:01 Temperature Pulse Rate Respiratory 28 28 26 Rate Blood Pressure (mmHg) O2 Sat by Pulse Oximetry 11/29/16 11/29/16 11/29/16 03:02 07:40 08:03 Temperature Pulse Rate 98 Respiratory 26 22 24 Rate Blood Pressure 161/68 (mmHg) O2 Sat by Pulse 97 Oximetry 11/29/16 11/29/16 11/29/16 09:21 09:26 09:35 Temperature Pulse Rate Respiratory 24 24 20 Rate Blood Pressure (mmHg) O2 Sat by Pulse Oximetry 11/29/16 11/29/16 09:55 12:05 Temperature Pulse Rate Respiratory 24 24 Rate Blood Pressure (mmHg) O2 Sat by Pulse Oximetry Oxygen Devices in Use Now: Nasal Cannula - 2L Appearance: NAD, chronically ill apprearing, laying in bed Eyes: - - Scleral icterus Respiratory: Symmetrical Chest Expansion and Respiratory Effort, - - Lung sounds with few crackles in bases Cardiovascular: NL Sounds; No Murmurs; No JVD, RRR Abdominal: - - Bowel sounds present, abdomen large, soft, distended. + Fluids Extremities: No Edema Skin: No Rash or Ulcers, - - Jaundice Neurological: - - Lethargic, not very responsive Lines/Tubes/Other Access: Clean, Dry and Intact Peripheral IV - site benign Nutrition: Taking PO's Result Diagrams: 11/27/16 04:53 11/28/16 10:08 Additional Lab and Data: Laboratory Tests 11/24/16 11/25/16 15:30 04:47 INR (Anticoag Therapy) 2.38 H 2.49 H Microbiology and Other Data: Microbiology 11/24/16 18:30 Gram Stain - Final Body Fluid - Peritoneal Assess/Plan/Problems-Billing Assessment: Ms. Vidal is a 61 yo female with liver cirrhosis associated with alcoholism and hep C as well as chronic pain, HTN, and anxiety who presented with confusion and abdominal pain. Admitted with concern for SBP, but now appears to be acute alcoholic hepatitis with hepatorenal syndrome. - Patient Problems (1) Acute on chronic alcoholic liver disease Code(s): K70.9 - ALCOHOLIC LIVER DISEASE, UNSPECIFIED SNOMED Code(s): 765219204 Comment: - Inital concern for SBP, but this is not supported by peritoneal fluid analysis - High MELD score (33 on admission, 37 11/27) with associated hepatorenal syndrome - Appreciate GI consultation - No evidence of acute alcohol withdrawal - She does appears encephalopathic, continue lactulose at increased dose - S/P high volume paracentesis (done 11/26 with ~9L taken off) and give albumin per GI recommendation to support renal fxn - GI advised against corticosteroids at this time - GI prophylaxis with PPI - Palliative consult, input appreciated - Plan for comfort care at this time (2) Hepatorenal syndrome Code(s): K76.7 - HEPATORENAL SYNDROME SNOMED Code(s): 81495130 Comment: - This is a new finding and poor prognostic indicator - Giving albumin per GI recommendation - S/P large volume paracentesis 11/26 (3) Hepatic encephalopathy Code(s): K72.90 - HEPATIC FAILURE, UNSPECIFIED WITHOUT COMA SNOMED Code(s): 60881622 Comment: - Continues to have confusion - Continue lactulose (4) Abnormal finding on urinalysis Code(s): R82.90 - UNSPECIFIED ABNORMAL FINDINGS IN URINE SNOMED Code(s): 643934417 Comment: - Possible UTI - Urine cx, no growth - Discontinued ceftriaxone (5) Heart murmur Code(s): R01.1 - CARDIAC MURMUR, UNSPECIFIED SNOMED Code(s): 97137437 Comment: - No prior mention of valvular heart disease - TTE - mild LVH, no evidence of significant , mild atrial annular calcification, mild MS, and mild TR. (6) Demand ischemia Code(s): I24.8 - OTHER FORMS OF ACUTE ISCHEMIC HEART DISEASE SNOMED Code(s): 774377996 Comment: - Troponin stable - No c/o CP - No ischemic changes on EKG (7) Hyperkalemia Code(s): E87.5 - HYPERKALEMIA SNOMED Code(s): 52853204 Comment: - Resolved - Likely due to acute renal dysfunction - No changes on telemetry (8) Leukocytosis Code(s): D72.829 - ELEVATED WHITE BLOOD CELL COUNT, UNSPECIFIED SNOMED Code(s) : 559742839 Comment: - Perhaps due to hepatitis - Urine cx with no growth (9) Metabolic acidosis Code(s): E87.2 - ACIDOSIS SNOMED Code(s): 40598180 Comment: - Likely due to renal dysfunction - No evidence of sepsis (10) Thrombocytopenia Code(s): D69.6 - THROMBOCYTOPENIA, UNSPECIFIED SNOMED Code(s): 721644767 Comment: - Secondary to liver cirrhosis (11) DVT prophylaxis Code(s): EFQ7841 - SNOMED Code(s): 068610260 Comment: - SCDs only in the setting of thrombocytopenia (12) DNR (do not resuscitate) Status and Disposition: Inpatient. Anticipate extended LOS > 3 days. Plan for discharge to [place] with Hospice.
[2016-11-29] MEDS: LORazepam INJ* 2 MG/ML 1 ML VIAL IV PUSH PRN (13:28)
[2016-11-29] MEDS: Atropine 1% (ORAL/SL)* 15 ML BTL SL PRN (21:11)
[2016-11-30] MEDS: Morphine ORAL CONCENTRATE* 5 MG/0.25 ML ORAL.SYRIN SL PRN ×3 (01:01→07:43)
[2016-11-30] MEDS: LORazepam INJ* 2 MG/ML 1 ML VIAL IV PUSH PRN ×2 (01:01→07:42)
[2016-11-30] MEDS: Furosemide TAB* 20 MG PO SCH (07:46)
[2016-11-30] MEDS: Sertraline* 100 MG TAB PO SCH (07:46)
[2016-11-30] MEDS: Lactulose* 15 ML UDC PO SCH (07:46)
[2016-11-30] MEDS: Spironolactone TAB* 25 MG PO SCH (07:46)
[2016-11-30 08:13] VITALS: BP 155/58
[2016-11-30] MEDS: Atropine 1% (ORAL/SL)* 15 ML BTL SL PRN (08:50)
[2016-11-30] MEDS ORDERED: Morphine ORAL CONCENTRATE* 5 MG/0.25 ML ORAL.SYRIN SL PRN (09:25)
--- NOTE | 2016-11-30 09:36 | PN ---
Subjective Date of Service: 11/30/16 Interval History: Patient seen and examined at bedside. Pt is non-responsive. Her brother and sister in-law are at bedside. Pt's breathing appears to be labored and she appears to be uncomfortable. HCP Theresa notified that we were increasing the morphine due to the patient's labored breathing and appearing uncomfortable. Family History: Unchanged from Admission Social History: Unchanged from Admission Past Medical History: Unchanged from Admission Objective Active Medications: Atropine Sulfate (Atropine 1% (Oral/Sl)*) 2 drop SL Q2H PRN Reason: DISCOMFORT Furosemide (Lasix Tab*) 20 mg PO 0800,1700 ALMA ROSA Lactulose (Lactulose*) 30 ml PO QID ALMA ROSA Lorazepam (Ativan Tab(*)) 0.25 mg PO Q6H PRN Reason: ANXIETY Lorazepam (Ativan Inj*) 0.25 mg IV PUSH Q6H PRN Reason: ANXIETY Morphine Sulfate (Morphine Oral Concentrate*) 5 mg SL Q1H PRN Reason: PAIN Ondansetron HCl (Zofran Inj*) 4 mg IV Q4H PRN Reason: NAUSEA/VOMITING Ondansetron HCl (Zofran Odt Tab*) 4 mg SL Q6H PRN Reason: NAUSEA/VOMITING Sertraline HCl (Zoloft*) 100 mg PO DAILY ALMA ROSA Spironolactone (Aldactone Tab*) 100 mg PO DAILY [facility] Vital Signs 11/29/16 11/29/16 11/29/16 09:35 09:55 11:55 Temperature Pulse Rate Respiratory 20 24 20 Rate Blood Pressure (mmHg) O2 Sat by Pulse Oximetry 11/29/16 11/29/16 11/29/16 12:05 12:45 13:28 Temperature Pulse Rate Respiratory 24 22 28 Rate Blood Pressure (mmHg) O2 Sat by Pulse Oximetry 11/29/16 11/29/16 11/29/16 14:01 14:28 15:30 Temperature Pulse Rate Respiratory 24 24 24 Rate Blood Pressure (mmHg) O2 Sat by Pulse Oximetry 11/29/16 11/29/16 11/30/16 16:37 20:00 01:01 Temperature Pulse Rate Respiratory 26 28 24 Rate Blood Pressure (mmHg) O2 Sat by Pulse Oximetry 11/30/16 11/30/16 11/30/16 02:01 03:01 04:55 Temperature Pulse Rate Respiratory 24 24 24 Rate Blood Pressure (mmHg) O2 Sat by Pulse Oximetry 11/30/16 11/30/16 11/30/16 06:55 07:42 07:43 Temperature Pulse Rate Respiratory 24 34 134 Rate Blood Pressure (mmHg) O2 Sat by Pulse Oximetry 11/30/16 11/30/16 08:01 08:13 Temperature 98.0 F Pulse Rate 139 Respiratory 20 34 Rate Blood Pressure 155/58 (mmHg) O2 Sat by Pulse 78 Oximetry Oxygen Devices in Use Now: Nasal Cannula - 2L Appearance: ill appearing, with labored breathing Eyes: - - Scleral icterus Respiratory: - - Lung sounds with rhocnchi throughout Cardiovascular: RRR - , tachycardic Abdominal: - - Abdomen soft, distended, non tender. + Fluid wave. Extremities: No Edema Skin: - - Jaundice Neurological: - - Unresponsive Lines/Tubes/Other Access: Clean, Dry and Intact Peripheral IV - site benign Result Diagrams: 11/27/16 04:53 11/28/16 10:08 Additional Lab and Data: Laboratory Tests 11/24/16 11/25/16 15:30 04:47 INR (Anticoag Therapy) 2.38 H 2.49 H Microbiology and Other Data: Microbiology 11/24/16 18:30 Gram Stain - Final Body Fluid - Peritoneal Assess/Plan/Problems-Billing Assessment: Ms. Vidal is a 61 yo female with liver cirrhosis associated with alcoholism and hep C as well as chronic pain, HTN, and anxiety who presented with confusion and abdominal pain. Admitted with concern for SBP, but now appears to be acute alcoholic hepatitis with hepatorenal syndrome. - Patient Problems (1) End of life care Code(s): Z51.5 - ENCOUNTER FOR PALLIATIVE CARE SNOMED Code(s): 390724759 Comment: - Pt with endstage liver failure with hepatorenal syndrome - Pt appears very uncomfortable today - Will increase morphine SL - Continue atropine and lorazepam as needed (2) DNR (do not resuscitate) Status and Disposition: Inpatient. Anticipate extended LOS > 3 days. Plan for discharge to [place] with Hospice.
--- NOTE | 2016-12-01 01:38 | DS ---
SUMMARY: ADDENDUM: DATE OF : 11/30/16 PRIMARY DIAGNOSIS: Liver failure secondary to alcoholic cirrhosis secondary to alcoholism and renal failure. SECONDARY DIAGNOSES: 1. Anxiety. 2. Chronic pain. 3. Hypertension. HOSPITAL COURSE: Ms. Vidal was admitted to the hospital on 11/24/16 with complaints of abdominal pain worse since her discharge from the hospital where she had been approximately 2 weeks ago where she had been admitted with complaints of abdominal pain, increasing abdominal girth, and weight gain. The patient was also being followed for similar complaints by Gastroenterology and was on diuretics, but she has not had improvement in her symptoms. At that time , the patient had been admitted and underwent a large volume paracentesis and was subsequently discharged home. It was felt according to the patient's family that she was unable to really care for herself at home. She had been sporadically taking her medications. They found pill bottles and pills scattered around the home. It was unclear if the patient had been taking her medications or not. It was believed that the patient had seen Gastroenterology in followup. It was felt that she had a possible skin infection at the site of her paracentesis and had been prescribed an antibiotic, which was filled but it is unclear if the patient had taken it. The patient had been having diarrhea and poor appetite. The patient was also experiencing abdominal pain, had been increasingly weak, and sustained multiple falls over the days leading up to her arrival in the emergency room and the patient had been found on the ground by her son and her friend called EMS to transport the patient to the emergency room. EMS found the patient to be hypoglycemic with a glucose of 38. She was given an amp of dextrose and was brought to the emergency room. While in the emergency room, the patient was found to have a white blood cell count of 11.9, hemoglobin 11.7, and a platelet count of 96. An INR of 2.38, PTT of 57. She had a CMP showing a potassium of 6.7, bicarb of 14, BUN of 53, creatinine of 2.79, lactic acid of 2.9. The patient's magnesium was 2.5. Her total bilirubin 7.2, AST 296, ALT 260, alk phos 179, ammonia 83. Total CK of 392. Troponin 0.05. CRP of 25. BNP of 178, albumin of 1.7, and a total protein of 8.1. Amylase was normal at 28 and lipase was 53. She had CT of her brain showing no acute process. Chest x-ray showing no acute process and an EKG with sinus rhythm and no ischemic changes. Based off the patient's presentation , Hospitalists were asked to evaluate the patient for admission. Initially while in the hospital, the patient was first felt to have a possible spontaneous bacterial peritonitis based off her leukocytosis, worsening liver failure, acute kidney injury. A bedside paracentesis was performed by Dr. Rand showing no signs of SBP. The patient had initially been started on antibiotics and these were stopped. During her hospitalization, she continued to have a mild leukocytosis. Her platelet count dipped down to 32. Her hyperkalemia resolved. She continued to have worsening renal function and worsening liver function. She was felt to have a hepatorenal syndrome. She was seen in consultation by GI who recommended the patient receive albumin for 2 doses to support her renal function. The patient received 2 days worth of albuterol per their recommendations. The patient underwent large volume paracentesis on 11/26/[address] Jeffries with a total of 8800 mL of forthcoming from the large volume paracentesis. The patient was also found to have hepatic encephalopathy. She was not having bowel movements. The lactulose was titrated up to assist with this. When the patient's liver and kidney function continued to worsen, she had a palliative care consultation. Her healthcare proxies, Theresa and Kiana, felt that the patient would want to not have heroic measures or aggressive treatment. The patient also agreed to lean towards palliative measure. The patient was seen again in consultation on 11/28/16 by PRANAV to see if there was anything further that could be offered to assist with her liver failure. It was felt that at this time the best thing for the patient was comfort care measures. The patient was formally placed on comfort care measures on the evening of 11/29/16. On the morning of 11/30/16 4th, the patient was very uncomfortable with breathing. The patient was given morphine as needed for shortness of breath and lorazepam was needed for anxiety. The patient had had fluid stopped. She had stopped eating. At 10:37 a.m. on , the patient was with her family at bedside, took her last breath, and was found to be pulseless and without a heartbeat. I was with the patient during her last breaths and confirmed that her heart had stopped and was pronounced. The patient's brother, Reginaldo, was at bedside and aware, the healthcare proxy Theresa was notified by phone. The family requested no autopsy. DISPOSITION: To home of the patient family's choice. LOW GONZALEZ, RIVAS [id number]/[facility] #: [id number] [facility] HOSPITALNuvia
--- NOTE | 2016-12-01 01:47 | DS ---
CONTINUATION ADDENDUM NOW INCLUDED ON THIS REPORT CC: Dr. Ashley Cordova * SUMMARY: DATE OF ADMISSION: 11/24/16 DATE OF DISCHARGE: 11/30/16, . ATTENDING PHYSICIAN: Dr. Ramos Vidal * (dictated by Low Gonzalez NP) PRIMARY CARE PROVIDER: Dr. Ashley Cordova. CONTINUATION ADDENDUM: DATE OF : 11/30/16 PRIMARY DIAGNOSIS: Liver failure secondary to alcoholic cirrhosis secondary to alcoholism and renal failure. SECONDARY DIAGNOSES: 1. Anxiety. 2. Chronic pain. 3. Hypertension. HOSPITAL COURSE: Ms. Vidal was admitted to the hospital on 11/24/16 with complaints of abdominal pain worse since her discharge from the hospital where she had been approximately 2 weeks ago where she had been admitted with complaints of abdominal pain, increasing abdominal girth, and weight gain. The patient was also being followed for similar complaints by Gastroenterology and was on diuretics, but she has not had improvement in her symptoms. At that time , the patient had been admitted and underwent a large volume paracentesis and was subsequently discharged home. It was felt according to the patient's family that she was unable to really care for herself at home. She had been sporadically taking her medications. They found pill bottles and pills scattered around the home. It was unclear if the patient had been taking her medications or not. It was believed that the patient had seen Gastroenterology in followup. It was felt that she had a possible skin infection at the site of her paracentesis and had been prescribed an antibiotic, which was filled but it is unclear if the patient had taken it. The patient had been having diarrhea and poor appetite. The patient was also experiencing abdominal pain, had been increasingly weak, and sustained multiple falls over the days leading up to her arrival in the emergency room and the patient had been found on the ground by her son and her friend called EMS to transport the patient to the emergency room. EMS found the patient to be hypoglycemic with a glucose of 38. She was given an amp of dextrose and was brought to the emergency room. While in the emergency room, the patient was found to have a white blood cell count of 11.9, hemoglobin 11.7, and a platelet count of 96. An INR of 2.38, PTT of 57. She had a CMP showing a potassium of 6.7, bicarb of 14, BUN of 53, creatinine of 2.79, lactic acid of 2.9. The patient's magnesium was 2.5. Her total bilirubin 7.2, AST 296, ALT 260, alk phos 179, ammonia 83. Total CK of 392. Troponin 0.05. CRP of 25. BNP 178, albumin of 1.7, and a total protein of 8.1. Amylase was normal at 28 and lipase was 53. She had CT of her brain showing no acute process. Chest x-ray showing no acute process. She had an EKG with sinus rhythm and no ischemic changes. Based off the patient 's presentation, Hospitalists were asked to evaluate the patient for admission. Initially while in the hospital, the patient was first felt to have a possible spontaneous bacterial peritonitis based off her leukocytosis, worsening liver failure, acute kidney injury. A bedside paracentesis was performed by Dr. Rand showing no signs of SBP. The patient had initially been started on antibiotics and these were stopped. During her hospitalization, she continued to have a mild leukocytosis. Her platelet count dipped down to 32. Her hyperkalemia resolved. She continued to have worsening renal function and worsening liver function. She was felt to have a hepatorenal syndrome. She was seen in consultation by GI who recommended the patient receive albumin for 2 doses to support her renal function. The patient received 2 days worth of albuterol per their recommendations. The patient underwent large volume paracentesis on 11/26/[address] Jeffries with a total of 8800 mL of forthcoming from the large volume paracentesis. The patient was also found to have hepatic encephalopathy. She was not having bowel movements. The lactulose was titrated up to assist with this. When the patient's liver and kidney function continued to worsen, she had a palliative care consultation. Her healthcare proxies, Theresa and Kiana, felt that the patient would want to not have heroic measures or aggressive treatment. The patient also agreed to lean towards palliative measure. The patient was seen again in consultation on 11/28/16 by GI to see if there was anything further that could be offered to assist with her liver failure. It was felt that at this time the best thing for the patient was comfort care measures. The patient was formally placed on comfort care measures on the evening of 11/29/16. On the morning of 11/30/16 4th, the patient was very uncomfortable with breathing. The patient was given morphine as needed for shortness of breath and lorazepam was needed for anxiety. The patient had had fluid stopped. She had stopped eating. At 10:37 a.m. on , the patient was with her family at bedside, took her last breath, and was found to be pulseless and without a heartbeat. I was with the patient during her last breaths and confirmed that her heart had stopped and was pronounced. The patient's brother, Reginaldo, was at bedside and aware, the healthcare proxy Theresa was notified by phone. The family requested no autopsy. DISPOSITION: To home of the patient family's choice. LOW GONZALEZ, ROUTE DELIVERY CLERK [id number]/[facility] #: [id number] LOW GONZALEZ, ROUTE DELIVERY CLERK [id number]/[facility] #: [id number] [facility]
== END 2016-11-30 10:37 | disposition expired | DRG 432 ==
LOC: ED 15:12 → MEDTELE 17:32 → MED 11-27 20:24
PROVIDERS: ADMIT Internal Medicine; ATTEND Internal Medicine
PROC: 0W9G3ZX Drainage of Peritoneal Cavity, Percutaneous Approach, Diagnostic (ICD-10-PCS; principal; 2016-11-24)
PROC: 0W9G3ZZ Drainage of Peritoneal Cavity, Percutaneous Approach (ICD-10-PCS; 2016-11-26)
DX: K70.11 Alcoholic hepatitis with ascites (principal); K76.7 Hepatorenal syndrome; N17.9 Acute kidney failure, unspecified; E87.2 Acidosis; E87.1 Hypo-osmolality and hyponatremia; I24.8 Other forms of acute ischemic heart disease; D69.59 Other secondary thrombocytopenia; K70.40 Alcoholic hepatic failure without coma; K70.31 Alcoholic cirrhosis of liver with ascites; E87.5 Hyperkalemia; F41.9 Anxiety disorder, unspecified; F10.20 Alcohol dependence, uncomplicated; G89.29 Other chronic pain; I10 Essential (primary) hypertension; Z66 Do not resuscitate; R74.8 Abnormal levels of other serum enzymes; D72.829 Elevated white blood cell count, unspecified; R01.1 Cardiac murmur, unspecified; R82.90 Unspecified abnormal findings in urine; Z79.899 Other long term (current) drug therapy; Z79.891 Long term (current) use of opiate analgesic; Z88.6 Allergy status to analgesic agent; Z88.8 Allergy status to other drugs, medicaments and biological substances; Z81.1 Family history of alcohol abuse and dependence; Z91.14 Patient's other noncompliance with medication regimen
CPT/HCPCS: 36415; 49082; 70450; 71010; 80048; 80053; 81003; 81015; 82140; 82150; 82550; 82570; 83605; 83615; 83690; 83735; 83880; 84157; 84300; 84484; 85025; 85610; 85730; 86140; 87040; 87086; 87205; 89051; 93005; 93306; A9270-GY; J0610; J0696; J1940; J2001; J2060; J2270; J3411; J3475; J7060; P9047